=== PATIENT | female | born 1945 | race Caucasian/White ===

== ENCOUNTER → 2021-01-21 | Outpatient (CLI) | payer MEDICARE ==
--- NOTE | 2021-01-21 12:13 | XR ---
EXAMINATION TYPE: XR foot complete LT DATE OF EXAM: 01/21/2021 Comparison: None Clinical History: 75-year-old female LEFT FOOT pain and bruising. Findings: There is marked dorsal soft tissue swelling. Marked osteopenia limiting evaluation. No discrete lytic destruction identified For the osteopenia. Mild degenerative change first MTP joint and first metatarsal sesamoid joint. Mod erate-sized plantar heel spur. Enthesopathy at the Achilles insertion. Impression: Pronounced osteopenia limiting assessment. Additionally, there is pronounced dorsal soft tissue swell ing. Query cellulitis. No displaced fracture seen.
== END ==
LOC: RADXRMAIN 11:00
PROVIDERS: ATTEND Nurse Practitioner Family
DX: M79.89 Other specified soft tissue disorders (principal); M85.80 Other specified disorders of bone density and structure, unspecified site

== ENCOUNTER → 2022-03-27 | Outpatient (CLI) | payer MEDICARE ==
--- NOTE | 2022-03-28 11:31 | CA ---
Transthoracic Echo Report Name: Kelly Balderrama Age: 77 Gender: F : 1945 Exam Date: 03/27/2022 11:20 Exam Location: [facility] Ht (in): 70 Wt (lb): 310 Ordering Physician: Isela Voss DO Attending/Referring Phys: Isela Voss DO Web Content Producer Karena Agrawal RDCS Procedure CPT: Indications: R01.1 cardiac murmur Cardiac Hx: Technical Quality: Technically difficult study Contrast 1: Lumason Total Dose (mL): 3 Contrast 2: Total Dose (mL): MEASUREMENTS (Male / Female) Normal Values 2D ECHO LV Diastolic Diameter PLAX 4.3 cm 4.2 - 5.9 / 3.9 - 5.3 cm LV Systolic Diameter PLAX 2.9 cm IVS Diastolic Thickness 1.3 cm 0.6 - 1.0 / 0.6 - 0.9 cm LVPW Diastolic Thickness 1.3 cm 0.6 - 1.0 / 0.6 - 0.9 cm LV Relative Wall Thickness 0.6 RV Internal Dim ED PLAX 3.8 cm M-MODE Aortic Root Diameter MM 2.8 cm LA Systolic Diameter MM 4.4 cm LA Ao Ratio MM 1.6 AV Cusp Separation MM 1.8 cm DOPPLER AV Peak Velocity 172.8 cm/s AV Peak Gradient 11.9 mmHg AV Mean Velocity 155.7 cm/s AV Mean Gradient 11.5 mmHg AV Velocity Time Integral 52.5 cm LVOT Peak Velocity 77.0 cm/s LVOT Peak Gradient 2.4 mmHg MV Area PHT 3.2 cm??? Mitral E Point Velocity 104.5 cm/s Mitral A Point Velocity 131.0 cm/s Mitral E to A Ratio 0.8 MV Deceleration Time 238.5 ms MV E' Velocity 7.6 cm/s Mitral E to MV E' Ratio 13.7 TR Peak Velocity 283.9 cm/s TR Peak Gradient 32.2 mmHg Right Ventricular Systolic Press 36.1 mmHg FINDINGS Left Ventricle Normal left ventricular systolic function with no obvious regional wall motion abnormalities. Left ventricular cavity size normal. Mildly increased left ventricular wall thickness. Left ventricular ejection fraction is estimated at 55-60 %. Right Ventricle Moderate right ventricular dilatation. Mild pulmonary hypertension. Right Atrium Right atrium not well visualized. Left Atrium Mild left atrial dilatation. Mitral Valve Mild mitral regurgitation. Aortic Valve No aortic regurgitation. Trileaflet aortic valve. Aortic valve sclerosis. Tricuspid Valve Structurally normal tricuspid valve. Mild tricuspid regurgitation. Pulmonic Valve Structurally normal pulmonic valve. Trace pulmonic regurgitation. Pericardium No pericardial effusion. Aorta Normal size aortic root and proximal ascending aorta. CONCLUSIONS Normal left ventricular dimension and systolic function Please see above for further details Previewed by: Dr. Justin Miller MD (Electronically Signed) Final Date: 28 Mar 2022 11:30
== END | disposition home or self-care (01) ==
LOC: RADECHMAIN 11:17
PROVIDERS: ATTEND Family Medicine
DX: I08.8 Other rheumatic multiple valve diseases (principal)
CPT/HCPCS: C8929; Q9950; 93306

== ENCOUNTER 2022-08-17 09:27 | Emergency (ER) | payer MEDICARE ==
[2022-08-17 09:33] VITALS: TEMP 97.6
[2022-08-17] MEDS ORDERED: KETOROLAC 15 MG/ML 1 ML VIAL IM STA (10:13)
--- NOTE | 2022-08-17 10:13 | ED ---
Back Pain HPI - General Chief Complaint: Back Pain/Injury Stated Complaint: Sciatica Time Seen by Provider: 08/17/22 09:53 Source: patient, RN notes reviewed Limitations: no limitations - History of Present Illness Initial Comments: Patient is a pleasant 77-year-old female presenting to the emergency room with complaints of right lower back pain with radiation into her right leg. She reports a history of right-sided lower back pain with sciatica in the past. She reports that symptoms are unchanged from her previous flare. She denies any trauma or known injury. She states that she took Tylenol at home without any significant relief in her symptoms. She reports that she has previously responded well to steroids and is not currently following with a orthopedist or neurologist. She denies any focal neurological deficits, urinary or bowel incontinence, saddle paresthesia or other red flag symptoms for cauda equina. In addition to her back pain she has a past medical history significant for diabetes, hypertension, hyperlipidemia and chronic kidney disease stage III. - Related Data Home Medications Medication Instructions Recorded Confirmed Atorvastatin [Lipitor] 10 mg PO HS 09/14/16 12/21/21 Pioglitazone HCl [Actos] 15 mg PO HS 09/14/16 12/21/21 atenoloL [Tenormin] 25 mg PO HS 09/14/16 12/21/21 glipiZIDE [Glucotrol] 5 mg PO HS 09/14/16 12/21/21 Ascorbic Acid [Vitamin C] 500 mg PO HS 12/21/21 12/21/21 Cholecalciferol [Vitamin D3 (25 25 mcg PO HS 12/21/21 12/21/21 Mcg = 1000 Iu)] Insulin Aspart Prot/Insuln Asp 12 unit SQ HS 12/21/21 12/21/21 [NovoLOG MIX 70-30 Flexpen] Insulin Aspart Prot/Insuln Asp 17 unit SQ DAILY 12/21/21 12/21/21 [NovoLOG MIX 70-30 Flexpen] lisinopriL 40 mg PO HS 12/21/21 12/21/21 Previous Rx's Medication Instructions Recorded predniSONE [Deltasone] 20 mg PO BID #10 tab 08/17/22 Allergies Allergy/AdvReac Type Severity Reaction Status Date / Time No Known Allergies Allergy Verified 08/17/22 09:33 Review of Systems ROS Statement: Those systems with pertinent positive or pertinent negative responses have been documented in the HPI. ROS Other: All systems not noted in ROS Statement are negative. Past Medical History Past Medical History: Diabetes Mellitus, Hyperlipidemia, Hypertension, Renal Disease History of Any Multi-Drug Resistant Organisms: None Reported Past Surgical History: Appendectomy, Cholecystectomy Additional Past Surgical History / Comment(s): fluid drained from heart 20 years ago Past Psychological History: No Psychological Hx Reported Smoking Status: Never smoker Past Alcohol Use History: None Reported Past Drug Use History: None Reported General Exam Limitations: no limitations General appearance: alert, in no apparent distress, obese Head exam: Present: atraumatic, normocephalic, normal inspection Eye exam: Present: normal appearance, PERRL, EOMI. Absent: scleral icterus, conjunctival injection, periorbital swelling ENT exam: Present: normal exam, mucous membranes moist Neck exam: Present: normal inspection, full ROM Respiratory exam: Absent: respiratory distress, accessory muscle use Cardiovascular Exam: Present: regular rate GI/Abdominal exam: Absent: distended Extremities exam: Present: full ROM. Absent: pedal edema, joint swelling Back exam: Present: normal inspection, full ROM (Slightly limited by body habitus). Absent: tenderness, CVA tenderness (R), muscle spasm, paraspinal tenderness, vertebral tenderness Neurological exam: Present: alert, oriented X3, CN II-XII intact Psychiatric exam: Present: normal affect, normal mood Skin exam: Present: warm, dry, intact, normal color. Absent: rash Course Vital Signs 08/17/22 08/17/22 09:29 10:59 Temperature 97.6 F Pulse Rate 81 74 Respiratory 16 17 Rate Blood Pressure 163/78 179/69 O2 Sat by Pulse 96 95 Oximetry Medical Decision Making - Medical Decision Making 77-year-old female presenting to the emergency room with complaints of right-sided lower back pain with right-sided sciatica similar to previous episodes without any new trauma, new characteristics, neuropathy or incontinence. No indication for diagnostic imaging or laboratory studies. Previously responded well to oral steroids. Will give dose of Toradol and monitor response. Slight improvement with Toradol. Will give morphine and monitor for efficacy. 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 Symptoms improved with morphine without side effects. Will discharge home on oral steroid regiment as previously prescribed, no need for taper. Advise follow-up with her primary care provider. Return parameters to the emergency room reviewed. Case discussed with Dr. Sunshine. Disposition Clinical Impression: Lumbar radiculopathy Disposition: HOME SELF-CARE Condition: Stable Instructions (If sedation given, give patient instructions): Lumbar Radiculopathy (ED), Lower Back Exercises (ED) Additional Instructions: Please complete course of steroids as prescribed. Avoid heavy lifting and bedrest. Please follow-up with your primary care provider. Range of motion as tolerated encouraged. Please return to the Emergency Department if symptoms worsen or any other concerns. Prescriptions: predniSONE [Deltasone] 20 mg PO BID #10 tab Is patient prescribed a controlled substance at d/c from ED?: No Referrals: Isela Voss DO [Primary Care Provider] - 1-2 days Time of Disposition: 11:33
[2022-08-17] MEDS ORDERED: MORPHINE SULFATE 4 MG/ML SYRINGE IM STA (10:51)
[2022-08-17 11:02] VITALS: BP 179/69; PULSE 74; RESP 17
== END 2022-08-17 11:58 | disposition home or self-care (01) ==
LOC: EC 09:27
DX: M54.16 Radiculopathy, lumbar region (principal); E11.22 Type 2 diabetes mellitus with diabetic chronic kidney disease; I12.9 Hypertensive chronic kidney disease with stage 1 through stage 4 chronic kidney disease, or unspecified chronic kidney disease; N18.30 Chronic kidney disease, stage 3 unspecified; E78.5 Hyperlipidemia, unspecified; Z79.4 Long term (current) use of insulin; Z79.899 Other long term (current) drug therapy; Z79.84 Long term (current) use of oral hypoglycemic drugs
CPT/HCPCS: 96372; 99283; J2270; J1885

== ENCOUNTER 2023-03-23 20:38 | Inpatient (IN) | payer MEDICARE ==
[2023-03-23] MEDS ORDERED: ACETAMINOPHEN TAB 500 MG TAB PO STA (21:04)
--- NOTE | 2023-03-23 21:06 | ED ---
General Adult HPI - General Chief complaint: Fever Stated complaint: fever Time Seen by Provider: 03/23/23 20:40 Source: patient, EMS, RN notes reviewed Mode of arrival: EMS Limitations: no limitations - History of Present Illness Initial comments: Patient is a pleasant 78-year-old female presenting to the emergency department after feeling well. Onset of symptoms was approximately 3-4 days ago. Patient complains of chills and myalgias and fatigue. No cough. No dyspnea. No abdominal pain. No urinary symptoms. No new back pain. No confusion or isolated area of weakness. Patient is unclear whether or not she is having fevers at home. - Related Data Home Medications Medication Instructions Recorded Confirmed Atorvastatin [Lipitor] 10 mg PO HS 09/14/16 12/21/21 Pioglitazone HCl [Actos] 15 mg PO HS 09/14/16 12/21/21 atenoloL [Tenormin] 25 mg PO HS 09/14/16 12/21/21 glipiZIDE [Glucotrol] 5 mg PO HS 09/14/16 12/21/21 Ascorbic Acid [Vitamin C] 500 mg PO HS 12/21/21 12/21/21 Cholecalciferol [Vitamin D3 (25 25 mcg PO HS 12/21/21 12/21/21 Mcg = 1000 Iu)] Insulin Aspart Prot/Insuln Asp 12 unit SQ HS 12/21/21 12/21/21 [NovoLOG MIX 70-30 Flexpen] Insulin Aspart Prot/Insuln Asp 17 unit SQ DAILY 12/21/21 12/21/21 [NovoLOG MIX 70-30 Flexpen] lisinopriL 40 mg PO HS 12/21/21 12/21/21 Previous Rx's Medication Instructions Recorded predniSONE [Deltasone] 20 mg PO BID #10 tab 08/17/22 Allergies Allergy/AdvReac Type Severity Reaction Status Date / Time No Known Allergies Allergy Verified 03/23/23 20:45 Review of Systems ROS Statement: Those systems with pertinent positive or pertinent negative responses have been documented in the HPI. ROS Other: All systems not noted in ROS Statement are negative. Constitutional: Reports: as per HPI, chills Eyes: Denies: eye pain ENT: Denies: ear pain Respiratory: Denies: cough Cardiovascular: Denies: chest pain Endocrine: Reports: fatigue Gastrointestinal: Denies: abdominal pain Genitourinary: Denies: dysuria Musculoskeletal: Denies: back pain Skin: Denies: rash Neurological: Denies: weakness Past Medical History Past Medical History: Diabetes Mellitus, Hyperlipidemia, Hypertension, Renal Disease History of Any Multi-Drug Resistant Organisms: None Reported Past Surgical History: Appendectomy, Cholecystectomy Additional Past Surgical History / Comment(s): fluid drained from heart 20 years ago Past Psychological History: No Psychological Hx Reported Smoking Status: Never smoker Past Alcohol Use History: None Reported Past Drug Use History: None Reported General Exam Limitations: no limitations General appearance: alert, in no apparent distress Head exam: Present: normocephalic Eye exam: Present: normal appearance Neck exam: Present: normal inspection Respiratory exam: Present: normal lung sounds bilaterally Cardiovascular Exam: Present: regular rate, normal rhythm GI/Abdominal exam: Present: soft. Absent: tenderness Extremities exam: Present: pedal edema. Absent: calf tenderness Neurological exam: Present: alert Psychiatric exam: Present: normal affect, normal mood Skin exam: Present: normal color Course Vital Signs 03/23/23 03/23/23 03/23/23 20:40 21:40 21:42 Temperature 102.6 F H 100.4 F H Pulse Rate 100 90 Respiratory 18 24 24 Rate Blood Pressure 140/68 131/80 O2 Sat by Pulse 92 L 96 Oximetry - Reevaluation(s) Reevaluation #1: 03/23/23 23:08 Patient does qualify for sepsis criteria diagnosed at 2300. Blood culture and lactic acid and IV antibiotics will be ordered EKG Findings - EKG Results: EKG: interpreted by ERMD, sinus rhythm, normal axis, normal QRS, normal ST/T Medical Decision Making - Medical Decision Making Was pt. sent in by a medical professional or institution (, PA, SALES ENABLEMENT CONSULTANT, urgent care, hospital, or care home...) When possible be specific @ -No Did you speak to anyone other than the patient for history (EMS, parent, family, police, friend...)? What history was obtained from this source @ -Family later arrived and help provide history bleeding to patient's recent illness Did you review nursing and triage notes (agree or disagree)? Why? @ -I reviewed and agree with nursing and triage notes Were old charts reviewed (outside hosp., previous admission, EMS record, old EKG, old radiological studies, urgent care reports/EKG's, care home records)? Report findings @ -No old charts were reviewed Differential Diagnosis (chest pain, altered mental status, abdominal pain women, abdominal pain men, vaginal bleeding, weakness, fever, dyspnea, syncope, headache, dizziness, GI bleed, back pain, seizure, CVA, palpatations, mental health)? @ -Differential Weakness: Hypoglycemia, shock, sepsis, hyponatremia, anemia, infection, IA, ETOH, adverse medicine reaction, overdose, stroke, this is not meant to be an all-inclusive list. EKG interpreted by me (3pts min.). @ -As above X-rays interpreted by me (1pt min.). @ -Chest x-ray concerning for small right upper middle lobe infiltrates CT interpreted by me (1pt min.). @ -None done U/S interpreted by me (1pt. min.). @ -None done What testing was considered but not performed or refused? (CT, X-rays, U/S, labs)? Why? @ -None What meds were considered but not given or refused? Why? @ -None Did you discuss the management of the patient with other professionals (professionals i.e. , PA, SALES ENABLEMENT CONSULTANT, lab, RT, psych nurse, social service agency director, automobile service station mechanic, teacher, court collections officer, human services case manager)? Give summary @ -Case was discussed with Dr. corona, who will admit covering hospital call Was smoking cessation discussed for >3mins.? @ -No Was critical care preformed (if so, how long)? @ -33 minutes critical care time Were there social determinants of health that impacted care today? How? (Homelessness, low income, unemployed, alcoholism, drug addiction, transportation, low edu. Level, literacy, decrease access to med. care, detention, rehab)? @ -No Was there de-escalation of care discussed even if they declined (Discuss DNR or withdrawal of care, Hospice)? DNR status @ -No What co-morbidities impacted this encounter? (DM, HTN, Smoking, COPD, CAD, Cancer, CVA, ARF, Chemo, Hep., AIDS, mental health diagnosis, sleep apnea, morbid obesity)? @ -None Was patient admitted / discharged? Hospital course, mention meds given and route, prescriptions, significant lab abnormalities, going to OR and other pertinent info. @ -Patient reevaluated. Patient and family updated on results and plan. Patient will be admitted with IV antibiotics. Patient does meet sepsis criteria. Undiagnosed new problem with uncertain prognosis? @ -No Drug Therapy requiring intensive monitoring for toxicity (Heparin, Nitro, Insulin, Cardizem)? @ -No Were any procedures done? @ -No Diagnosis/symptom? @ -Pneumonia, UTI, sepsis Acute, or Chronic, or Acute on Chronic? @ -Acute, acute, acute Uncomplicated (without systemic symptoms) or Complicated (systemic symptoms)? @ -Infection, acute with sepsis Side effects of treatment? @ -No Exacerbation, Progression, or Severe Exacerbation? @ -No Poses a threat to life or bodily function? How? (Chest pain, USA, IA, pneumonia, PE, COPD, DKA, ARF, appy, cholecystitis, CVA, Diverticulitis, Homicidal, Suicidal, threat to staff... and all critical care pts) @ -No - Lab Data Result diagrams: 03/23/23 21:04 03/23/23 21:04 Lab Results 03/23/23 03/23/23 03/23/23 Range/Units 21:04 21:04 21:04 WBC 7.7 (3.8-10.6) k/uL RBC 3.83 (3.80-5.40) m/uL Hgb 11.3 L (11.4-16.0) gm/dL Hct 35.1 (34.0-46.0) % MCV 91.6 (80.0-100.0) fL MCH 29.5 (25.0-35.0) pg MCHC 32.2 (31.0-37.0) g/dL RDW 14.9 (11.5-15.5) % Plt Count 105 L (150-450) k/uL MPV 8.6 Neutrophils % 91 % Lymphocytes % 3 % Monocytes % 3 % Eosinophils % 2 % Basophils % 0 % Neutrophils # 7.0 (1.3-7.7) k/uL Lymphocytes # 0.2 L (1.0-4.8) k/uL Monocytes # 0.3 (0-1.0) k/uL Eosinophils # 0.1 (0-0.7) k/uL Basophils # 0.0 (0-0.2) k/uL Sodium 137 (137-145) mmol/L Potassium 5.1 (3.5-5.1) mmol/L Chloride 105 (98-107) mmol/L Carbon Dioxide 23 (22-30) mmol/L Anion Gap 9 mmol/L BUN 43 H (7-17) mg/dL Creatinine 1.72 H (0.52-1.04) mg/dL Est GFR (CKD-EPI)AfAm 32 (>60 ml/min/1.73 sqM) Est GFR (CKD-EPI)NonAf 28 (>60 ml/min/1.73 sqM) Glucose 178 H (74-99) mg/dL Plasma Lactic Acid Leo (0.7-2.0) mmol/L Calcium 8.5 (8.4-10.2) mg/dL Total Bilirubin 0.9 (0.2-1.3) mg/dL AST 41 H (14-36) U/L ALT 24 (4-34) U/L Alkaline Phosphatase 88 (38-126) U/L Total Protein 6.4 (6.3-8.2) g/dL Albumin 3.5 (3.5-5.0) g/dL Urine Color Yellow Urine Appearance Cloudy H (Clear) Urine pH 5.5 (5.0-8.0) Ur Specific [place] 1.016 (1.001-1.035) Urine Protein 2+ H (Negative) Urine Glucose (UA) Negative (Negative) Urine Ketones Negative (Negative) Urine Blood Trace H (Negative) Urine Nitrite Negative (Negative) Urine Bilirubin Negative (Negative) Urine Urobilinogen <2.0 (<2.0) mg/dL Ur Leukocyte Esterase Large H (Negative) Urine RBC 2 (0-5) /hpf Urine WBC 127 H (0-5) /hpf Urine WBC Clumps Many H (None) /hpf Ur Squamous Epith Cells <1 (0-4) /hpf Amorphous Sediment Rare H (None) /hpf Urine Bacteria Many H (None) /hpf Urine Mucus Rare H (None) /hpf 03/23/23 Range/Units 21:04 WBC (3.8-10.6) k/uL RBC (3.80-5.40) m/uL Hgb (11.4-16.0) gm/dL Hct (34.0-46.0) % MCV (80.0-100.0) fL MCH (25.0-35.0) pg MCHC (31.0-37.0) g/dL RDW (11.5-15.5) % Plt Count (150-450) k/uL MPV Neutrophils % % Lymphocytes % % Monocytes % % Eosinophils % % Basophils % % Neutrophils # (1.3-7.7) k/uL Lymphocytes # (1.0-4.8) k/uL Monocytes # (0-1.0) k/uL Eosinophils # (0-0.7) k/uL Basophils # (0-0.2) k/uL Sodium (137-145) mmol/L Potassium (3.5-5.1) mmol/L Chloride (98-107) mmol/L Carbon Dioxide (22-30) mmol/L Anion Gap mmol/L BUN (7-17) mg/dL Creatinine (0.52-1.04) mg/dL Est GFR (CKD-EPI)AfAm (>60 ml/min/1.73 sqM) Est GFR (CKD-EPI)NonAf (>60 ml/min/1.73 sqM) Glucose (74-99) mg/dL Plasma Lactic Acid Leo 1.0 (0.7-2.0) mmol/L Calcium (8.4-10.2) mg/dL Total Bilirubin (0.2-1.3) mg/dL AST (14-36) U/L ALT (4-34) U/L Alkaline Phosphatase (38-126) U/L Total Protein (6.3-8.2) g/dL Albumin (3.5-5.0) g/dL Urine Color Urine Appearance (Clear) Urine pH (5.0-8.0) Ur Specific [place] (1.001-1.035) Urine Protein (Negative) Urine Glucose (UA) (Negative) Urine Ketones (Negative) Urine Blood (Negative) Urine Nitrite (Negative) Urine Bilirubin (Negative) Urine Urobilinogen (<2.0) mg/dL Ur Leukocyte Esterase (Negative) Urine RBC (0-5) /hpf Urine WBC (0-5) /hpf Urine WBC Clumps (None) /hpf Ur Squamous Epith Cells (0-4) /hpf Amorphous Sediment (None) /hpf Urine Bacteria (None) /hpf Urine Mucus (None) /hpf Critical Care Time Critical Care Time: Yes Total Critical Care Time: 33 Disposition Clinical Impression: Sepsis, Urinary tract infection, Pneumonia Disposition: ADMITTED IP TO THIS HOSP Condition: Serious Is patient prescribed a controlled substance at d/c from ED?: No Referrals: Luis Enrique Leong DO [REFERRING] - 1-2 days Time of Disposition: 23:12
[2023-03-23] MEDS: SODIUM CHLORIDE 0.9% 1,000 ML IV SCH (21:37)
[2023-03-23 21:52] LABS: Basophils % (A) 0 %; Eosinophils # (A) 0.1 k/uL (0-0.7); Eosinophils % (A) 2 %; HCT 35.1 % (34.0-46.0); HGB 11.3 gm/dL (11.4-16.0); Lymphocytes # (A) 0.2 k/uL (1.0-4.8); Lymphocytes % (A) 3 %; MCH 29.5 pg (25.0-35.0); MCHC 32.2 g/dL (31.0-37.0); MCV 91.6 fL (80.0-100.0); Mean Platelet Volume 8.6; Monocytes # (A) 0.3 k/uL (0-1.0); Monocytes % (A) 3 %; Neutrophils % (A) 91 %; Platelet Count 105 k/uL (150-450); RBC 3.83 m/uL (3.80-5.40); RDW 14.9 % (11.5-15.5); WBC 7.7 k/uL (3.8-10.6)
[2023-03-23 21:54] LABS: Albumin 3.5 g/dL (3.5-5.0); Calcium 8.5 mg/dL (8.4-10.2); Potassium 5.1 mmol/L (3.5-5.1); Total Bilirubin 0.9 mg/dL (0.2-1.3); Total Protein 6.4 g/dL (6.3-8.2)
[2023-03-23 22:07] LABS: Amorphous Sediment,Urine Rare /hpf; Appearance,Urine Cloudy (Clear); Bacteria,Urine Many /hpf; Bilirubin,Urine Negative (Negative); Blood,Urine Trace (Negative); Color,Urine Yellow; Glucose,Urine (UA) Negative (Negative); Ketones,Urine Negative (Negative); Leukocyte Esterase,Urine Large (Negative); Mucus,Urine Rare /hpf; Nitrite,Urine Negative (Negative); PH, Urine 5.5 (5.0-8.0); Protein,Urine 2+ (Negative); RBC,Urine 2 /hpf (0-5); Specific Gravity,Urine 1.016 (1.001-1.035); Squamous Epithelial Cell,Urine <1 /hpf (0-4); Urobilinogen,Urine <2.0 mg/dL (<2.0); WBC,Urine 127 /hpf (0-5)
--- NOTE | 2023-03-23 22:56 | XR ---
EXAM: XR Chest, 2 Views CLINICAL HISTORY: FEVER TECHNIQUE: Frontal and lateral views of the chest. COMPARISON: No relevant prior studies available. FINDINGS: Lungs: There is a patchy opacity in the right upper and right middle lobe. There is mild to moderate peribronchial thickening of the central bronchi. Pleural space: Unremarkable. No pneumothorax. Heart: Unremarkable. No cardiomegaly. Mediastinum: Unremarkable. Bones/joints: Unremarkable. IMPRESSION: Findings concerning for right upper and right middle lobe infiltrates.
[2023-03-23] MEDS ORDERED: SODIUM CHLORIDE 0.9% 1,000 ML IV STA (23:08)
[2023-03-23] MEDS ORDERED: PNEUMONIA PROTOCOL UTILIZED 1 EACH MISC PO PRN (23:12)
[2023-03-23] MEDS ORDERED: MORPHINE SULFATE 4 MG/ML SYRINGE IVP STA (23:15)
[2023-03-24] MEDS: AZITHROMYCIN 500 MG in SODIUM CHLORIDE 0.9% 250 ML IVPB SCH (00:01)
--- NOTE | 2023-03-24 07:46 | XR ---
EXAMINATION TYPE: XR chest 1V portable DATE OF EXAM: 03/24/2023 Comparison: 03/23/2023 Clinical History: 78-year-old female pneumonia Findings: Asymmetric elevation right hemidiaphragm. Heart upper limits of normal in size. Interstitial prominen ce without emory consolidation or pleural effusion. Impression: 1. Interstitial prominence could reflect bronchitis or asthma. No focal infiltrate. 2. Asymmetric elevation right hemidiaphragm may be transient. If concern for hemidiaphragmatic paraly sis, a fluoroscopic sniff test could be performed.
[2023-03-24] MEDS ORDERED: DEXTROSE 50% SYRINGE 50 ML IVP PRN ×2 (10:17)
[2023-03-24] MEDS ORDERED: ONDANSETRON 4 MG/2 ML VIAL IVP PRN (10:20)
[2023-03-24] MEDS ORDERED: ACETAMINOPHEN TAB 325 MG TAB PO PRN (10:20)
[2023-03-24 11:12] LABS: Glucose,Whole Blood 177 mg/dL (70-110)
[2023-03-24] MEDS: SODIUM CHLORIDE 0.9% 1,000 ML IV SCH ×3 (11:50→21:39)
[2023-03-24] MEDS: INSULN ASP PRT/INSULIN ASPART 100 UNIT/ML 10 ML VIAL SQ SCH (11:52)
[2023-03-24] MEDS: INSULIN ASPART (NovoLOG) 100 UNIT/ML VIAL SQ SCH ×3 (13:13→20:28)
[2023-03-24 13:14] LABS: Glucose,Whole Blood 167 mg/dL (70-110)
--- NOTE | 2023-03-24 15:06 | P.HPIM ---
History of Present Illness H&P Date: 03/24/23 This is an 78 year old female with medical history of diabetes mellitus, hyperlipidemia, hypertension, renal disease. Patient also reports having a recent eye surgery due a "black film." patient presents to the hospital with complaints of generalized malaise and chills which started on Thursday. Patient has been mostly bed rest since then due to generalized weakness and reports decreased appetite. Patient has been feeling nausea and had an episode of vomiting yesterday. Patient denies fever at home but does have a temp of 102.6 upon presentation to the ER. Denies chest pain, denies abdominal pain and diarrhea. Denies dizziness or lightheadedness. Patient denies any dysuria. Initial work up reveals a normal white count, creatinine of 1.72. Influenza A/B, Legionella, RSV and covid are negative. Patients initial chest xray showing right upper and middle lobe infiltrate. A follow up xray shows elevation of the right hemidiaphragm this could be transient. We will follow up the chest xray in the AM. Patient is requiring oxygen at 2L nasal cannula and was unable to be weaned with oxygen dropping into the mid 80s. Patient will be admitted for pneumonia and sepsis and started on antibiotic therapy with IV ceftriaxone and IV azithromycin. A procalcitonin level is ordered. REVIEW OF SYSTEMS: CONSTITUTIONAL: Reports fever, malaise, fatigue HEENT: No recent visual problems or hearing problems. Denied any sore throat. CARDIOVASCULAR: No chest pain, orthopnea, PND, no palpitations, no syncope. PULMONARY: No shortness of breath, no cough, no hemoptysis. GASTROINTESTINAL: No diarrhea, no abdominal pain reports nausea and vomiting. NEUROLOGICAL: No headaches, no weakness, no numbness. HEMATOLOGICAL: Denies any bleeding or petechiae. GENITOURINARY: Denies any burning micturition, frequency, or urgency. MUSCULOSKELETAL/RHEUMATOLOGICAL: Denies any joint pain, swelling, or any muscle pain. ENDOCRINE: Denies any polyuria or polydipsia. The rest of the 14-point review of systems is negative. PHYSICAL EXAMINATION: GENERAL: The patient is alert and oriented x3, not in any acute distress. Well developed, well nourished. Fatigued. on 2L nasal cannula. HEENT: Pupils are round and equally reacting to light. EOMI. No scleral icterus. No conjunctival pallor. Normocephalic, atraumatic. No pharyngeal erythema. No thyromegaly. CARDIOVASCULAR: S1 and S2 present. No murmurs, rubs, or gallops. PULMONARY: Chest is clear to auscultation, no wheezing or crackles. ABDOMEN: Soft, nontender, nondistended, normoactive bowel sounds. No palpable organomegaly. MUSCULOSKELETAL: No joint swelling or deformity. EXTREMITIES: No cyanosis, clubbing, or pedal edema. NEUROLOGICAL: Gross neurological examination did not reveal any focal deficits. SKIN: No rashes. Assessment and plan Assessment Right sided pneumonia with sepsis community acquired present on admission Acute hypoxic respiratory failure secondary to above requiring 2L of oxygen via nasal cannula. Abnormal urine possibly due to dehydration patient is asymptomatic at this time Acute kidney injury Diabetes Mellitus type 2 History of hypertension Hyperlipidemia GI prophylaxis DVT prophylaxis Plan Continue IV fluids IV ceftriaxone Hold lisinopril and torsemide Check procalcitonin level Continue supplemental oxygen Incentive spirometer 10 x an hour while awake Follow up AM labs PT/OT consulatation The impression and plan of care has been dictated by Digna Ulloa Nurse Practitioner as directed. Dr. Xavier MD I have performed a history and physical examination and medical decision making of this patient, discussed the same with the dictator, and agree with the dictators assessment and plan as written, documented as a scribe. Based on total visit time, I have performed more than 50% of this visit. Past Medical History Past Medical History: Diabetes Mellitus, Hyperlipidemia, Hypertension, Renal Disease History of Any Multi-Drug Resistant Organisms: None Reported Past Surgical History: Appendectomy, Cholecystectomy Additional Past Surgical History / Comment(s): fluid drained from heart 20 years ago Past Psychological History: No Psychological Hx Reported Smoking Status: Never smoker Past Alcohol Use History: None Reported Past Drug Use History: None Reported Medications and Allergies Home Medications Medication Instructions Recorded Confirmed Type Atorvastatin [Lipitor] 10 mg PO HS 09/14/16 03/24/23 History Ascorbic Acid [Vitamin C] 500 mg PO HS 12/21/21 03/24/23 History Cholecalciferol [Vitamin D3 (25 25 mcg PO HS 12/21/21 03/24/23 History Mcg = 1000 Iu)] Insulin Aspart Prot/Insuln Asp 14 unit SQ HS 12/21/21 03/24/23 History [NovoLOG MIX 70-30 Flexpen] Insulin Aspart Prot/Insuln Asp 17 unit SQ DAILY 12/21/21 03/24/23 History [NovoLOG MIX 70-30 Flexpen] lisinopriL 40 mg PO HS 12/21/21 03/24/23 History Pioglitazone [Actos] 30 mg PO HS 03/24/23 03/24/23 History Torsemide [Demadex] 5 - 10 mg PO DAILY 03/24/23 03/24/23 History carvediloL [Coreg] 3.125 mg PO BID 03/24/23 03/24/23 History Allergies Allergy/AdvReac Type Severity Reaction Status Date / Time No Known Allergies Allergy Verified 03/24/23 08:36 Physical Exam Vitals: Vital Signs Temp Pulse Resp BP Pulse Ox 03/24/23 06:05 98.2 F 70 18 108/77 95 03/24/23 03:54 73 18 104/45 95 03/23/23 23:41 98.8 F 82 18 99/48 94 L 03/23/23 23:10 80 15 96/32 03/23/23 23:00 81 22 96/39 94 L 03/23/23 22:50 80 30 H 96/39 95 03/23/23 22:42 81 30 H 96/39 94 L 03/23/23 21:42 24 03/23/23 21:40 100.4 F H 90 24 131/80 96 03/23/23 20:40 102.6 F H 100 18 140/68 92 L Intake and Output 03/23/23 03/24/23 03/24/23 22:59 06:59 14:59 Other: Weight 136.078 kg Results CBC & Chem 7: 03/23/23 21:04 03/23/23 21:04 Labs: Abnormal Lab Results - Last 24 Hours (Table) 03/23/23 03/23/23 03/23/23 Range/Units 21:04 21:04 21:04 Hgb 11.3 L (11.4-16.0) gm/dL Plt Count 105 L (150-450) k/uL Lymphocytes # 0.2 L (1.0-4.8) k/uL BUN 43 H (7-17) mg/dL Creatinine 1.72 H (0.52-1.04) mg/dL Glucose 178 H (74-99) mg/dL AST 41 H (14-36) U/L Urine Appearance Cloudy H (Clear) Urine Protein 2+ H (Negative) Urine Blood Trace H (Negative) Ur Leukocyte Esterase Large H (Negative) Urine WBC 127 H (0-5) /hpf Urine WBC Clumps Many H (None) /hpf Amorphous Sediment Rare H (None) /hpf Urine Bacteria Many H (None) /hpf Urine Mucus Rare H (None) /hpf Microbiology - Last 24 Hours (Table) 03/23/23 21:04 Urine Culture - Preliminary Urine,Catheterized Assessment and Plan Time with Patient: Less than 30
[2023-03-24] MEDS: carvediloL 3.125 MG TAB PO SCH (16:49)
[2023-03-24] MEDS ORDERED: ALBUTEROL NEBULIZED 2.5 MG/3 ML INHALATION PRN (16:56)
[2023-03-24 17:01] LABS: Glucose,Whole Blood 133 mg/dL (70-110)
[2023-03-24 20:09] LABS: Glucose,Whole Blood 130 mg/dL (70-110)
[2023-03-24] MEDS: CHOLECALCIFEROL 25 MCG (1000 IU) TABLET PO SCH (20:27)
[2023-03-24] MEDS: ATORVASTATIN 10 MG TAB PO SCH (20:27)
[2023-03-24] MEDS: ASCORBIC ACID 500 MG TAB PO SCH (20:27)
[2023-03-24] MEDS: FAMOTIDINE 20 MG TAB PO SCH (20:28)
[2023-03-24] MEDS ORDERED: INSULN ASP PRT/INSULIN ASPART 100 UNIT/ML 10 ML VIAL SQ SCH (21:00)
[2023-03-24] MEDS ORDERED: atenoloL 25 MG TAB PO SCH (21:00)
[2023-03-24] MEDS ORDERED: glipiZIDE 5 MG TAB PO SCH (21:00)
[2023-03-24] MEDS ORDERED: PIOGLITAZONE 15 MG TAB PO SCH (21:00)
[2023-03-24] MEDS ORDERED: FAMOTIDINE 20 MG TAB PO SCH (21:00)
[2023-03-24] MEDS ORDERED: lisinopriL 20 MG TAB PO SCH (21:00)
--- NOTE | 2023-03-24 21:33 | P.CONS ---
History of Present Illness - Reason for Consult Consult date: 03/24/23 Bacteremia Requesting physician: Digna Ulloa - Chief Complaint Generalized malaise and chills x few days - History of Present Illness Patient is a 78-year-old female with a past medical his significant for diabetes mellitus hypertension hyperlipidemia renal insufficiency presented to the ER for evaluation of generalized malaise and chills symptom has been going on since Thursday the patient mention she is spent most of the day in bed has been complaint generalized weakness decreased appetite patient denies having any URI symptom has been nauseated episode of vomiting but denies having any abdominal pain or any diarrhea patient denies having any URI symptoms chest pain did have some shortness of breath and minimal cough but no sputum production pat ient on presentation to the hospital did have a fever of 102.6 degrees for night patient did have a tachycardia with a heart rate of 106 he was mildly hypoxic and need for supplemental oxygen currently on 2 L nasal cannula did have a normal white count of BUN/creatinine was mildly elevated elevated procalcitonin urine has been positive influenza RSV testing was negative patient blood cultures coming positive with Streptococcus agalactiae urine is showing gram- negative bacilli patient did have a chest x-ray right upper and right middle lobe infiltrate repeat x-ray this morning interstitial prominence could reflect bronchitis no acute infiltrate patient is currently being treated with Rocephin and azithromycin infectious disease was consulted for further management of antibiotic therapy patient did have a diffuse bilateral lower extremity swelling and some chronic dermatitis changes to the left leg but denies having any worsening swelling to the lower extremity any open wound or any drainage Review of Systems Positive point and negatives has been mentioned in the HPI, complete review of systems was performed and all other systems are negative Past Medical History Past Medical History: Diabetes Mellitus, Hyperlipidemia, Hypertension, Renal Disease History of Any Multi-Drug Resistant Organisms: None Reported Past Surgical History: Appendectomy, Cholecystectomy Additional Past Surgical History / Comment(s): fluid drained from heart 20 years ago Past Psychological History: No Psychological Hx Reported Smoking Status: Never smoker Past Alcohol Use History: None Reported Past Drug Use History: None Reported Medications and Allergies Home Medications Medication Instructions Recorded Confirmed Type Atorvastatin [Lipitor] 10 mg PO HS 09/14/16 03/24/23 History Ascorbic Acid [Vitamin C] 500 mg PO HS 12/21/21 03/24/23 History Cholecalciferol [Vitamin D3 (25 25 mcg PO HS 12/21/21 03/24/23 History Mcg = 1000 Iu)] Insulin Aspart Prot/Insuln Asp 14 unit SQ HS 12/21/21 03/24/23 History [NovoLOG MIX 70-30 Flexpen] Insulin Aspart Prot/Insuln Asp 17 unit SQ DAILY 12/21/21 03/24/23 History [NovoLOG MIX 70-30 Flexpen] lisinopriL 40 mg PO HS 12/21/21 03/24/23 History Pioglitazone [Actos] 30 mg PO HS 03/24/23 03/24/23 History Torsemide [Demadex] 5 - 10 mg PO DAILY 03/24/23 03/24/23 History carvediloL [Coreg] 3.125 mg PO BID 03/24/23 03/24/23 History Allergies Allergy/AdvReac Type Severity Reaction Status Date / Time No Known Allergies Allergy Verified 03/24/23 08:36 Physical Exam Vitals: Vital Signs Temp Pulse Resp BP Pulse Ox 03/24/23 13:08 74 19 123/47 96 03/24/23 12:26 97.6 F 65 17 116/51 98 03/24/23 11:05 97.6 F 62 18 111/51 96 03/24/23 11:00 86 L 03/24/23 10:00 64 18 126/54 96 03/24/23 09:00 61 18 126/62 98 03/24/23 08:00 63 18 122/55 98 03/24/23 07:00 63 18 116/52 98 03/24/23 06:05 98.2 F 70 18 108/77 95 03/24/23 04:00 71 22 104/45 03/24/23 03:54 73 18 104/45 95 03/24/23 03:00 70 16 91/44 03/24/23 02:00 73 25 H 84/38 03/24/23 01:00 73 25 H 93/44 03/24/23 00:00 37 H 99/48 03/23/23 23:41 98.8 F 82 18 99/48 94 L 03/23/23 23:11 106 H 25 H 83/32 94 L 03/23/23 23:10 80 15 96/32 03/23/23 23:00 81 22 96/39 94 L 03/23/23 22:50 80 30 H 96/39 95 03/23/23 22:42 81 30 H 96/39 94 L 03/23/23 21:42 24 03/23/23 21:40 100.4 F H 90 24 131/80 96 03/23/23 20:40 102.6 F H 100 18 140/68 92 L Intake and Output 03/23/23 03/24/23 03/24/23 22:59 06:59 14:59 Other: Weight 136.078 kg GENERAL DESCRIPTION: Elderly female lying in bed, no distress. No tachypnea or accessory muscle of respiration use. HEENT: Shows Pallor , no scleral icterus. Oral mucous membrane is dry. No pharyngeal erythema or thrush NECK: Trachea central, no thyromegaly. LUNGS: Unlabored breathing. Decreased breath sounds at the bases bilaterally HEART: S1, S2, regular rate and rhythm. ABDOMEN: Soft, no tenderness , guarding or rigidity EXTREMITIES: Diffuse swelling to bilateral lower extremity especially the left leg with some chronic changes no significant warmth blister or drainage was noticed. SKIN: No rash, no masses palpable. NEUROLOGICAL: The patient is awake, alert, oriented x3, mood and affect normal. Results CBC & Chem 7: 03/25/23 06:51 03/27/23 09:33 Labs: Abnormal Lab Results - Last 24 Hours (Table) 03/23/23 03/23/23 03/23/23 Range/Units 21:04 21:04 21:04 Hgb 11.3 L (11.4-16.0) gm/dL Plt Count 105 L (150-450) k/uL Lymphocytes # 0.2 L (1.0-4.8) k/uL BUN 43 H (7-17) mg/dL Creatinine 1.72 H (0.52-1.04) mg/dL Glucose 178 H (74-99) mg/dL POC Glucose (mg/dL) (70-110) mg/dL AST 41 H (14-36) U/L Urine Appearance Cloudy H (Clear) Urine Protein 2+ H (Negative) Urine Blood Trace H (Negative) Ur Leukocyte Esterase Large H (Negative) Urine WBC 127 H (0-5) /hpf Urine WBC Clumps Many H (None) /hpf Amorphous Sediment Rare H (None) /hpf Urine Bacteria Many H (None) /hpf Urine Mucus Rare H (None) /hpf 03/24/23 03/24/23 Range/Units 11:10 13:09 Hgb (11.4-16.0) gm/dL Plt Count (150-450) k/uL Lymphocytes # (1.0-4.8) k/uL BUN (7-17) mg/dL Creatinine (0.52-1.04) mg/dL Glucose (74-99) mg/dL POC Glucose (mg/dL) 177 H 167 H (70-110) mg/dL AST (14-36) U/L Urine Appearance (Clear) Urine Protein (Negative) Urine Blood (Negative) Ur Leukocyte Esterase (Negative) Urine WBC (0-5) /hpf Urine WBC Clumps (None) /hpf Amorphous Sediment (None) /hpf Urine Bacteria (None) /hpf Urine Mucus (None) /hpf Microbiology - Last 24 Hours (Table) 03/23/23 21:20 Blood Culture Gram Stain - Preliminary Blood Blood Culture - Preliminary Strep agalactiae - (group b) 03/23/23 21:23 Blood Culture Gram Stain - Preliminary Blood 03/23/23 21:04 Urine Culture - Preliminary Urine,Catheterized Assessment and Plan (1) Bacteremia due to Streptococcus Current Visit: Yes Status: Acute Code(s): R78.81 - BACTEREMIA; B95.5 - UNSP STREPTOCOCCUS THE CAUSE OF DISEASES CLASSD [facility] SNOMED Code(s): 373411364104 (2) Sepsis Current Visit: Yes Status: Acute Code(s): A41.9 - SEPSIS, UNSPECIFIED ORGANISM SNOMED Code(s): 75587156 Plan: 1patient presented to hospital with sepsis in this patient who did have a fever tachycardia source is likely multifactorial patient did have a positive and high clinical suspicious for UTI however her blood cultures are growing streptococci agalactiae which are usually of skin and soft tissue origin, patient did have a bilateral lower extremity swelling and some chronic derma titis changes to the left leg no significant warmth was noticed however could be possible source of bacteremia 2-blood cultures will be repeated document clearance of bacteremia 3-patient admitted Rocephin 2 g in addition to cover for both UTI as well as bacteremia possible related to the cellulitis We will follow on clinical condition and cultures to further adjust medication if needed Thank you for this consultation we will follow the patient along with you Time with Patient: Greater than 30
[2023-03-24] MEDS: PIOGLITAZONE 30 MG TAB PO SCH (21:39)
[2023-03-25] MEDS: AZITHROMYCIN 500 MG in SODIUM CHLORIDE 0.9% 250 ML IVPB SCH (00:01)
[2023-03-25] MEDS: SODIUM CHLORIDE 0.9% 1,000 ML IV SCH (06:07)
[2023-03-25] MEDS: carvediloL 3.125 MG TAB PO SCH ×2 (06:08→16:37)
[2023-03-25] MEDS: INSULIN ASPART (NovoLOG) 100 UNIT/ML VIAL SQ SCH ×4 (06:15→21:00)
[2023-03-25 06:16] LABS: Glucose,Whole Blood 89 mg/dL (70-110)
[2023-03-25 07:12] LABS: Basophils % (A) 0 %; Eosinophils # (A) 0.2 k/uL (0-0.7); Eosinophils % (A) 3 %; HGB 10.4 gm/dL (11.4-16.0); Hypochromasia Slight; Lymphocytes # (A) 0.7 k/uL (1.0-4.8); Lymphocytes % (A) 9 %; MCH 29.7 pg (25.0-35.0); MCHC 31.4 g/dL (31.0-37.0); MCV 94.7 fL (80.0-100.0); Mean Platelet Volume 8.9; Monocytes # (A) 0.4 k/uL (0-1.0); Monocytes % (A) 5 %; Neutrophils # (A) 5.8 k/uL (1.3-7.7); Neutrophils % (A) 80 %; Platelet Count 117 k/uL (150-450); RBC 3.48 m/uL (3.80-5.40); RDW 14.9 % (11.5-15.5); WBC 7.2 k/uL (3.8-10.6)
[2023-03-25 07:29] LABS: Calcium 8.3 mg/dL (8.4-10.2)
[2023-03-25 08:16] LABS: Magnesium 1.7 mg/dL (1.6-2.3); Potassium 4.9 mmol/L (3.5-5.1)
[2023-03-25] MEDS ORDERED: TORSEMIDE 20 MG TAB PO PRN (09:00)
[2023-03-25] MEDS: INSULN ASP PRT/INSULIN ASPART 100 UNIT/ML 10 ML VIAL SQ SCH ×2 (11:18→21:00)
[2023-03-25 12:06] LABS: Glucose,Whole Blood 130 mg/dL (70-110)
--- NOTE | 2023-03-25 13:42 | P.PN ---
Subjective Progress Note Date: 03/25/23 Principal diagnosis: UTI and bacteremia Patient is a 78-year-old female with a past medical his significant for diabetes mellitus hypertension hyperlipidemia renal insufficiency presented to the ER for evaluation of generalized malaise and chills , patient noticed to have a positivity was concern for possible UTI and subsequently came up positive for Streptococcus agalactiae, patient did have a chronic swelling to the lower extremity with some erythema to the left leg which was not that prominent on admission Cardiac evaluation that is 03/25/2023, the patient is afebrile, the patient is breathing comfortably is currently on room air patient denies having any chest pain or shortness of breath or cough no nausea no vomiting no abdominal pain no diarrhea Objective - Vital Signs Vital signs: Vital Signs Temp 98.0 F 03/25/23 12:00 Pulse 62 03/25/23 12:00 Resp 18 03/25/23 12:00 BP 128/73 03/25/23 12:00 Pulse Ox 97 03/25/23 12:00 FiO2 Intake & Output 03/24/23 03/25/23 03/25/23 18:59 06:59 18:59 Intake Total 180 Balance 180 Intake: Oral 180 Other: # Voids 2 - Exam GENERAL DESCRIPTION: An elderly female lying in bed in no distress RESPIRATORY SYSTEM: Unlabored breathing , decreased breath sounds at bases HEART: S1 S2 regular rate and rhythm , ABDOMEN: Soft , no tenderness EXTREMITIES: Diffuse swelling to bilateral lower extremity left leg with more swelling and erythema - Labs CBC & Chem 7: 03/25/23 06:51 03/25/23 06:51 Labs: Abnormal Lab Results - Last 24 Hours (Table) 03/24/23 03/24/23 03/24/23 Range/Units 10:29 10:29 13:09 RBC (3.80-5.40) m/uL Hgb (11.4-16.0) gm/dL Hct (34.0-46.0) % Plt Count (150-450) k/uL Lymphocytes # (1.0-4.8) k/uL Sodium (137-145) mmol/L Chloride (98-107) mmol/L Carbon Dioxide (22-30) mmol/L BUN (7-17) mg/dL Creatinine (0.52-1.04) mg/dL POC Glucose (mg/dL) 167 H (70-110) mg/dL Hemoglobin A1c 7.2 H (0.0-6.0) % Calcium (8.4-10.2) mg/dL Procalcitonin 16.60 H (0.02-0.09) ng/mL 03/24/23 03/24/23 03/25/23 Range/Units 16:59 20:08 06:51 RBC 3.48 L (3.80-5.40) m/uL Hgb 10.4 L (11.4-16.0) gm/dL Hct 33.0 L (34.0-46.0) % Plt Count 117 L (150-450) k/uL Lymphocytes # 0.7 L (1.0-4.8) k/uL Sodium (137-145) mmol/L Chloride (98-107) mmol/L Carbon Dioxide (22-30) mmol/L BUN (7-17) mg/dL Creatinine (0.52-1.04) mg/dL POC Glucose (mg/dL) 133 H 130 H (70-110) mg/dL Hemoglobin A1c (0.0-6.0) % Calcium (8.4-10.2) mg/dL Procalcitonin (0.02-0.09) ng/mL 03/25/23 03/25/23 Range/Units 06:51 12:05 RBC (3.80-5.40) m/uL Hgb (11.4-16.0) gm/dL Hct (34.0-46.0) % Plt Count (150-450) k/uL Lymphocytes # (1.0-4.8) k/uL Sodium 136 L (137-145) mmol/L Chloride 109 H (98-107) mmol/L Carbon Dioxide 18 L (22-30) mmol/L BUN 50 H (7-17) mg/dL Creatinine 1.87 H (0.52-1.04) mg/dL POC Glucose (mg/dL) 130 H (70-110) mg/dL Hemoglobin A1c (0.0-6.0) % Calcium 8.3 L (8.4-10.2) mg/dL Procalcitonin (0.02-0.09) ng/mL Microbiology - Last 24 Hours (Table) 03/23/23 21:23 Blood Culture Gram Stain - Preliminary Blood Blood Culture - Preliminary Strep agalactiae - (group b) 03/23/23 21:20 Blood Culture Gram Stain - Preliminary Blood Blood Culture - Preliminary Strep agalactiae - (group b) 03/23/23 21:04 Urine Culture - Preliminary Urine,Catheterized Gram Neg Bacilli Assessment and Plan (1) Bacteremia due to Streptococcus Current Visit: Yes Status: Acute Code(s): R78.81 - BACTEREMIA; B95.5 - UNSP STREPTOCOCCUS THE CAUSE OF DISEASES CLASSD [facility] SNOMED Code(s): 177682665214 (2) Urinary tract infection Current Visit: Yes Status: Acute Code(s): N39.0 - URINARY TRACT INFECTION, SITE NOT SPECIFIED SNOMED Code(s): 69976909 Plan: 1patient presented to hospital with sepsis in this patient who did have a fever tachycardia source is likely multifactorial patient did have a positive and high clinical suspicious for UTI however her blood cultures are growing streptococci agalactiae which is usually of skin and soft tissue origin, patient did have a bilateral lower extremity swelling and some chronic dermatitis changes to the left leg , noticed to have more erythema to be an likely the source of this bacteremia 2-blood cultures has been repeated document clearance of bacteremia 3-patient antibiotic will be adjusted to cefazolin 2 g every 8 hours and monitor clinical course closely Time with Patient: Less than 30
--- NOTE | 2023-03-25 15:36 | P.PN ---
Subjective Progress Note Date: 03/25/23 This is an 78 year old female with medical history of diabetes mellitus, hyperlipidemia, hypertension, renal disease. Patient also reports having a recent eye surgery due a "black film." patient presents to the hospital with complaints of generalized malaise and chills which started on Thursday. Patient has been mostly bed rest since then due to generalized weakness and reports decreased appetite. Patient has been feeling nausea and had an episode of vomiting yesterday. Patient denies fever at home but does have a temp of 102.6 upon presentation to the ER. Denies chest pain, denies abdominal pain and diarrhea. Denies dizziness or lightheadedness. Patient denies any dysuria. Initial work up reveals a normal white count, creatinine of 1.72. Influenza A/B, Legionella, RSV and covid are negative. Patients initial chest xray showing right upper and middle lobe infiltrate. A follow up xray shows elevation of the right hemidiaphragm this could be transient. We will follow up the chest xray in the AM. Patient is requiring oxygen at 2L nasal cannula and was unable to be weaned with oxygen dropping into the mid 80s. Patient will be admitted for pneumonia and sepsis and started on antibiotic therapy with IV ceftriaxone and IV azithromycin. A procalcitonin level is ordered. 03/25/2023 Patient is evaluated today on the medical floor. Overall reports improvement and feels less fatigued. No fevers overnight. Patient had positive blood culture with strep group b on 2/2 cultures and ID was consulted. Repeat blood cultures are taken. Patients left leg does appear to be more warm and red today than yesterday. The urine culture is showing gram negative bacilli. Patient remains on IV cefazolin. Patient kidney function worsened with IV fluids with BUN 50 creatinine of 1.87, does have chronic kidney disease unsure of baseline labs. Procalcitonin level is elevated at 16.60. Patient is 97% on room air. Review of Systems Constitutional: Denied any fatigue denied any fever. Cardio vascular: denied any chest pain, palpitations Gastrointestinal: denied any nausea, vomiting, diarrhea Pulmonary: Denied any shortness of breath cough Neurologic denied any new focal deficits All inpatient medications were reviewed and appropriate changes in these medications as dictated in the interval history and assessment and plan. PHYSICAL EXAMINATION: GENERAL: The patient is alert and oriented x3, not in any acute distress. Well developed, well nourished. Fatigued. on 2L nasal cannula. HEENT: Pupils are round and equally reacting to light. EOMI. No scleral icterus. No conjunctival pallor. Normocephalic, atraumatic. No pharyngeal erythema. No thyromegaly. CARDIOVASCULAR: S1 and S2 present. No murmurs, rubs, or gallops. PULMONARY: Chest is clear to auscultation, no wheezing or crackles. ABDOMEN: Soft, nontender, nondistended, normoactive bowel sounds. No palpable organomegaly. MUSCULOSKELETAL: No joint swelling or deformity. EXTREMITIES: No cyanosis, clubbing, Peripheral edema. NEUROLOGICAL: Gross neurological examination did not reveal any focal deficits. SKIN: No rashes. Bilateral lower extremity edema with redness left greater than right concern for cellulitis. There is an area of skin excoriation at the ankle on the left leg. Assessment and plan Assessment Right sided pneumonia with sepsis community acquired present on admission Acute hypoxic respiratory failure secondary to above requiring 2L of oxygen via nasal cannula. Strep bacteremia possible source of infection is left lower extremity cellulitis Abnormal urine possibly due to dehydration patient is asymptomatic at this time Acute on chronic kidney disease no labs available for review unsure what baseline creatinine is. Diabetes Mellitus type 2 History of hypertension Hyperlipidemia Obesity. GI prophylaxis DVT prophylaxis Plan Discontinue IV fluids and check proBNP Hold lisinopril and torsemide IV antibiotics per infectious disease, repeat blood cultures pending Continue supplemental oxygen Incentive spirometer 10 x an hour while awake Follow up AM labs PT/OT recommending home on discharge The impression and plan of care has been dictated by Digna Ulloa, Nurse Practitioner as directed. Dr. Xavier MD I have performed a history and physical examination and medical decision making of this patient, discussed the same with the dictator, and agree with the dictators assessment and plan as written, documented as a scribe. Based on total visit time, I have performed more than 50% of this visit. Objective - Vital Signs Vital signs: Vital Signs Temp 98.0 F 03/25/23 12:00 Pulse 62 03/25/23 14:00 Resp 18 03/25/23 14:00 BP 128/73 03/25/23 12:00 Pulse Ox 97 03/25/23 12:00 FiO2 Intake & Output 03/24/23 03/25/23 03/25/23 18:59 06:59 18:59 Intake Total 180 Balance 180 Intake: Oral 180 Other: # Voids 2 - Labs CBC & Chem 7: 03/25/23 06:51 03/25/23 06:51 Labs: Abnormal Lab Results - Last 24 Hours (Table) 03/24/23 03/24/23 03/24/23 Range/Units 10:29 10:29 16:59 RBC (3.80-5.40) m/uL Hgb (11.4-16.0) gm/dL Hct (34.0-46.0) % Plt Count (150-450) k/uL Lymphocytes # (1.0-4.8) k/uL Sodium (137-145) mmol/L Chloride (98-107) mmol/L Carbon Dioxide (22-30) mmol/L BUN (7-17) mg/dL Creatinine (0.52-1.04) mg/dL POC Glucose (mg/dL) 133 H (70-110) mg/dL Hemoglobin A1c 7.2 H (0.0-6.0) % Calcium (8.4-10.2) mg/dL Procalcitonin 16.60 H (0.02-0.09) ng/mL 03/24/23 03/25/23 03/25/23 Range/Units 20:08 06:51 06:51 RBC 3.48 L (3.80-5.40) m/uL Hgb 10.4 L (11.4-16.0) gm/dL Hct 33.0 L (34.0-46.0) % Plt Count 117 L (150-450) k/uL Lymphocytes # 0.7 L (1.0-4.8) k/uL Sodium 136 L (137-145) mmol/L Chloride 109 H (98-107) mmol/L Carbon Dioxide 18 L (22-30) mmol/L BUN 50 H (7-17) mg/dL Creatinine 1.87 H (0.52-1.04) mg/dL POC Glucose (mg/dL) 130 H (70-110) mg/dL Hemoglobin A1c (0.0-6.0) % Calcium 8.3 L (8.4-10.2) mg/dL Procalcitonin (0.02-0.09) ng/mL 03/25/23 Range/Units 12:05 RBC (3.80-5.40) m/uL Hgb (11.4-16.0) gm/dL Hct (34.0-46.0) % Plt Count (150-450) k/uL Lymphocytes # (1.0-4.8) k/uL Sodium (137-145) mmol/L Chloride (98-107) mmol/L Carbon Dioxide (22-30) mmol/L BUN (7-17) mg/dL Creatinine (0.52-1.04) mg/dL POC Glucose (mg/dL) 130 H (70-110) mg/dL Hemoglobin A1c (0.0-6.0) % Calcium (8.4-10.2) mg/dL Procalcitonin (0.02-0.09) ng/mL Microbiology - Last 24 Hours (Table) 03/23/23 21:23 Blood Culture Gram Stain - Preliminary Blood Blood Culture - Preliminary Strep agalactiae - (group b) 03/23/23 21:20 Blood Culture Gram Stain - Preliminary Blood Blood Culture - Preliminary Strep agalactiae - (group b) 03/23/23 21:04 Urine Culture - Preliminary Urine,Catheterized Gram Neg Bacilli Assessment and Plan Time with Patient: Less than 30
[2023-03-25 16:33] LABS: Glucose,Whole Blood 117 mg/dL (70-110)
[2023-03-25 20:18] LABS: Glucose,Whole Blood 165 mg/dL (70-110)
[2023-03-25] MEDS: CHOLECALCIFEROL 25 MCG (1000 IU) TABLET PO SCH (20:28)
[2023-03-25] MEDS: FAMOTIDINE 20 MG TAB PO SCH (20:28)
[2023-03-25] MEDS: ATORVASTATIN 10 MG TAB PO SCH (20:28)
[2023-03-25] MEDS: ASCORBIC ACID 500 MG TAB PO SCH (20:28)
[2023-03-25] MEDS: PIOGLITAZONE 30 MG TAB PO SCH (21:00)
[2023-03-26 06:11] LABS: Glucose,Whole Blood 113 mg/dL (70-110)
[2023-03-26] MEDS: INSULIN ASPART (NovoLOG) 100 UNIT/ML VIAL SQ SCH ×4 (06:14→21:17)
[2023-03-26] MEDS: carvediloL 3.125 MG TAB PO SCH ×2 (06:31→16:53)
[2023-03-26] MEDS ORDERED: FUROSEMIDE 10 MG/ML 4 ML VIAL IV STA (07:36)
[2023-03-26] MEDS: INSULN ASP PRT/INSULIN ASPART 100 UNIT/ML 10 ML VIAL SQ SCH ×2 (08:49→21:57)
[2023-03-26 09:37] LABS: Calcium 8.1 mg/dL (8.4-10.2); Potassium 4.3 mmol/L (3.5-5.1)
[2023-03-26 11:51] LABS: Glucose,Whole Blood 106 mg/dL (70-110)
--- NOTE | 2023-03-26 14:40 | P.PN ---
Subjective Progress Note Date: 03/26/23 Principal diagnosis: UTI and bacteremia Patient is a 78-year-old female with a past medical his significant for diabetes mellitus hypertension hyperlipidemia renal insufficiency presented to the ER for evaluation of generalized malaise and chills , patient noticed to have a positivity was concern for possible UTI and subsequently came up positive for Streptococcus agalactiae, patient did have a chronic swelling to the lower extremity with some erythema to the left leg which was not that prominent on admission Cardiac evaluation that is 03/26/2023, the patient remains to be afebrile, the patient is breathing comfortably on 2 L nasal cannula oxygen, patient denies having any chest pain or shortness of breath or cough no nausea no vomiting no abdominal pain no diarrhea Objective - Vital Signs Vital signs: Vital Signs Temp 97.8 F 03/26/23 12:04 Pulse 65 03/26/23 12:04 Resp 16 03/26/23 12:04 BP 147/67 03/26/23 12:04 Pulse Ox 99 03/26/23 12:04 FiO2 Intake & Output 03/25/23 03/26/23 03/26/23 18:59 06:59 18:59 Intake Total 180 540 Output Total 500 Balance 180 -500 540 Intake: Oral 180 540 Output: Urine 500 Other: # Voids 1 - Exam GENERAL DESCRIPTION: An elderly female lying in bed in no distress RESPIRATORY SYSTEM: Unlabored breathing , decreased breath sounds at bases HEART: S1 S2 regular rate and rhythm , ABDOMEN: Soft , no tenderness EXTREMITIES: Diffuse swelling to bilateral lower extremity left leg with more swelling and erythema - Labs CBC & Chem 7: 03/25/23 06:51 03/26/23 08:00 Labs: Abnormal Lab Results - Last 24 Hours (Table) 03/25/23 03/25/23 03/26/23 Range/Units 16:31 20:17 06:08 Carbon Dioxide (22-30) mmol/L BUN (7-17) mg/dL Creatinine (0.52-1.04) mg/dL Glucose (74-99) mg/dL POC Glucose (mg/dL) 117 H 165 H 113 H (70-110) mg/dL Calcium (8.4-10.2) mg/dL 03/26/23 Range/Units 08:00 Carbon Dioxide 21 L (22-30) mmol/L BUN 48 H (7-17) mg/dL Creatinine 1.80 H (0.52-1.04) mg/dL Glucose 114 H (74-99) mg/dL POC Glucose (mg/dL) (70-110) mg/dL Calcium 8.1 L (8.4-10.2) mg/dL Microbiology - Last 24 Hours (Table) 03/23/23 21:23 Blood Culture Gram Stain - Final Blood Blood Culture - Final Strep agalactiae - (group b) 03/23/23 21:20 Blood Culture Gram Stain - Final Blood Blood Culture - Final Strep agalactiae - (group b) 03/24/23 14:50 Blood Culture - Preliminary Blood 03/23/23 21:04 Urine Culture - Final Urine,Catheterized Escherichia coli Assessment and Plan (1) Bacteremia due to Streptococcus Current Visit: Yes Status: Acute Code(s): R78.81 - BACTEREMIA; B95.5 - UNSP STREPTOCOCCUS THE CAUSE OF DISEASES CLASSD [facility] SNOMED Code(s): 417338928150 (2) Urinary tract infection Current Visit: Yes Status: Acute Code(s): N39.0 - URINARY TRACT INFECTION, SITE NOT SPECIFIED SNOMED Code(s): 42764102 Plan: 1patient presented to hospital with sepsis in this patient who did have a fever tachycardia source is likely multifactorial patient did have a positive and high clinical suspicious for UTI however her blood cultures are growing streptococci agalactiae which is usually of skin and soft tissue origin, patient did have a bilateral lower extremity swelling and some chronic dermatitis changes to the left leg , noticed to have more erythema to be an likely the source of this bacteremia 2-blood cultures has been repeated and has been negative so far as per discussion with the PHYSICIAN PRESIDENT 3-patient to continue with cefazolin 2 g every 8 hours and hopefully finishing therapy with oral Keflex 4-patient urine with an E. coli with intermittent sensitive to cefazolin however the patient clinically do not have any urinary symptoms possible asymptomatic bacteriuria Time with Patient: Less than 30
--- NOTE | 2023-03-26 14:41 | P.PN ---
Subjective Progress Note Date: 03/26/23 This is an 78 year old female with medical history of diabetes mellitus, hyperlipidemia, hypertension, renal disease. Patient also reports having a recent eye surgery due a "black film." patient presents to the hospital with complaints of generalized malaise and chills which started on Thursday. Patient has been mostly bed rest since then due to generalized weakness and reports decreased appetite. Patient has been feeling nausea and had an episode of vomiting yesterday. Patient denies fever at home but does have a temp of 102.6 upon presentation to the ER. Denies chest pain, denies abdominal pain and diarrhea. Denies dizziness or lightheadedness. Patient denies any dysuria. Initial work up reveals a normal white count, creatinine of 1.72. Influenza A/B, Legionella, RSV and covid are negative. Patients initial chest xray showing right upper and middle lobe infiltrate. A follow up xray shows elevation of the right hemidiaphragm this could be transient. We will follow up the chest xray in the AM. Patient is requiring oxygen at 2L nasal cannula and was unable to be weaned with oxygen dropping into the mid 80s. Patient will be admitted for pneumonia and sepsis and started on antibiotic therapy with IV ceftriaxone and IV azithromycin. A procalcitonin level is ordered. 03/25/2023 Patient is evaluated today on the medical floor. Overall reports improvement and feels less fatigued. No fevers overnight. Patient had positive blood culture with strep group b on 2/2 cultures and ID was consulted. Repeat blood cultures are taken. Patients left leg does appear to be more warm and red today than yesterday. The urine culture is showing gram negative bacilli. Patient remains on IV cefazolin. Patient kidney function worsened with IV fluids with BUN 50 creatinine of 1.87, does have chronic kidney disease unsure of baseline labs. Procalcitonin level is elevated at 16.60. Patient is 97% on room air. 03/26/2023 Patient is evaluated today sitting up in the chair, family at the bedside. Left lower extremity remains reddened and edematous and dose of IV lasix is given today. proBNP was found to be 15,200. Patient will continue on IV lasix for the lower extremity edema, fluids remain off at this time. evening 70/30 dose was decreased and blood glucose remains stable at 113 today. No reports of low blood sugar. Patient has been weaned to room air with saturation of 99%. Follow up blood cultures remain negative so far and patient to continue on IV cefazolin pending final cultures to ensure clearance of the bacteremia. Review of Systems Constitutional: Denied any fatigue denied any fever. Cardio vascular: denied any chest pain, palpitations Gastrointestinal: denied any nausea, vomiting, diarrhea Pulmonary: Denied any shortness of breath cough Neurologic denied any new focal deficits All inpatient medications were reviewed and appropriate changes in these medications as dictated in the interval history and assessment and plan. PHYSICAL EXAMINATION: GENERAL: The patient is alert and oriented x3, not in any acute distress. Well developed, well nourished. Fatigued. on 2L nasal cannula. HEENT: Pupils are round and equally reacting to light. EOMI. No scleral icterus. No conjunctival pallor. Normocephalic, atraumatic. No pharyngeal erythema. No thyromegaly. CARDIOVASCULAR: S1 and S2 present. No murmurs, rubs, or gallops. PULMONARY: Chest is clear to auscultation, no wheezing or crackles. ABDOMEN: Soft, nontender, nondistended, normoactive bowel sounds. No palpable organomegaly. MUSCULOSKELETAL: No joint swelling or deformity. EXTREMITIES: No cyanosis, clubbing, Peripheral edema. NEUROLOGICAL: Gross neurological examination did not reveal any focal deficits. SKIN: No rashes. Bilateral lower extremity edema with redness left greater than right concern for cellulitis. There is an area of skin excoriation at the ankle on the left leg. Assessment and plan Assessment Right sided pneumonia with sepsis community acquired present on admission Acute hypoxic respiratory failure secondary to above requiring 2L of oxygen via nasal cannula. Strep bacteremia possible source of infection is left lower extremity cellulitis Chronic lower extremity edema Abnormal urine possibly due to dehydration patient is asymptomatic at this time Acute on chronic kidney disease no labs available for review unsure what baseline creatinine is. Diabetes Mellitus type 2 History of hypertension Hyperlipidemia Obesity. GI prophylaxis DVT prophylaxis Plan IV lasix has been ordered monitor intake and output Hold lisinopril and torsemide IV antibiotics per infectious disease, repeat blood cultures pending Continue supplemental oxygen Incentive spirometer 10 x an hour while awake Follow up AM labs PT/OT recommending home on discharge The impression and plan of care has been dictated by Nurse Sherie Marrero titmiles as directed. Dr. Xavier MD I have performed a history and physical examination and medical decision making of this patient, discussed the same with the dictator, and agree with the dictators assessment and plan as written, documented as a scribe. Based on total visit time, I have performed more than 50% of this visit. Objective - Vital Signs Vital signs: Vital Signs Temp 97.8 F 03/26/23 12:04 Pulse 65 03/26/23 12:04 Resp 16 03/26/23 12:04 BP 147/67 03/26/23 12:04 Pulse Ox 99 03/26/23 12:04 FiO2 Intake & Output 03/25/23 03/26/23 03/26/23 18:59 06:59 18:59 Intake Total 180 660 Output Total 500 Balance 180 -500 660 Intake: Oral 180 660 Output: Urine 500 Other: # Voids 1 - Labs CBC & Chem 7: 03/25/23 06:51 03/26/23 08:00 Labs: Abnormal Lab Results - Last 24 Hours (Table) 03/25/23 03/25/23 03/26/23 Range/Units 16:31 20:17 06:08 Carbon Dioxide (22-30) mmol/L BUN (7-17) mg/dL Creatinine (0.52-1.04) mg/dL Glucose (74-99) mg/dL POC Glucose (mg/dL) 117 H 165 H 113 H (70-110) mg/dL Calcium (8.4-10.2) mg/dL 03/26/23 Range/Units 08:00 Carbon Dioxide 21 L (22-30) mmol/L BUN 48 H (7-17) mg/dL Creatinine 1.80 H (0.52-1.04) mg/dL Glucose 114 H (74-99) mg/dL POC Glucose (mg/dL) (70-110) mg/dL Calcium 8.1 L (8.4-10.2) mg/dL Microbiology - Last 24 Hours (Table) 03/23/23 21:23 Blood Culture Gram Stain - Final Blood Blood Culture - Final Strep agalactiae - (group b) 03/23/23 21:20 Blood Culture Gram Stain - Final Blood Blood Culture - Final Strep agalactiae - (group b) 03/24/23 14:50 Blood Culture - Preliminary Blood 03/23/23 21:04 Urine Culture - Final Urine,Catheterized Escherichia coli Assessment and Plan Time with Patient: Less than 30
[2023-03-26 16:46] LABS: Glucose,Whole Blood 111 mg/dL (70-110)
[2023-03-26 20:09] LABS: Glucose,Whole Blood 136 mg/dL (70-110)
[2023-03-26] MEDS: CHOLECALCIFEROL 25 MCG (1000 IU) TABLET PO SCH (21:33)
[2023-03-26] MEDS: PIOGLITAZONE 30 MG TAB PO SCH (21:34)
[2023-03-26] MEDS: ASCORBIC ACID 500 MG TAB PO SCH (21:34)
[2023-03-26] MEDS: ATORVASTATIN 10 MG TAB PO SCH (21:34)
[2023-03-26] MEDS: FUROSEMIDE 10 MG/ML 4 ML VIAL IV SCH (21:34)
[2023-03-26] MEDS: FAMOTIDINE 20 MG TAB PO SCH (21:34)
[2023-03-27 05:35] VITALS: RESP 16
[2023-03-27 06:10] LABS: Glucose,Whole Blood 85 mg/dL (70-110)
[2023-03-27] MEDS: INSULIN ASPART (NovoLOG) 100 UNIT/ML VIAL SQ SCH ×3 (06:13→16:57)
[2023-03-27] MEDS: carvediloL 3.125 MG TAB PO SCH ×2 (06:38→18:07)
[2023-03-27] MEDS: INSULN ASP PRT/INSULIN ASPART 100 UNIT/ML 10 ML VIAL SQ SCH (09:28)
[2023-03-27] MEDS: FUROSEMIDE 10 MG/ML 4 ML VIAL IV SCH (09:29)
[2023-03-27 10:15] LABS: Calcium 8.4 mg/dL (8.4-10.2); Magnesium 1.6 mg/dL (1.6-2.3); Potassium 4.4 mmol/L (3.5-5.1)
[2023-03-27 11:54] LABS: Glucose,Whole Blood 51 mg/dL (70-110)
[2023-03-27 12:14] LABS: Glucose,Whole Blood 65 mg/dL (70-110)
[2023-03-27 12:37] LABS: Glucose,Whole Blood 131 mg/dL (70-110)
[2023-03-27] MEDS: MAGNESIUM SULFATE-D5W PMX 1 GM in DEXTROSE/WATER 1 100ML.BAG IVPB SCH ×2 (12:56→16:19)
--- NOTE | 2023-03-27 13:17 | US ---
EXAMINATION TYPE: US renals and bladder DATE OF EXAM: 03/27/2023 COMPARISON: CT 2015. CLINICAL INDICATION: Female, 78 years old with history of XIOMARA; XIOMARA EXAM MEASUREMENTS: Right Kidney: 10.1 x 5.1 x 5.2 cm Left Kidney: 11.0 x 5.6 x 4.9 cm Large pt body habitus, difficult visualization Right Kidney: Cortical thinning, no evidence of hydro Left Kidney: No evidence of hydro Bladder: wnl Bilateral Jets seen: No Suboptimal study. No hydronephrosis seen bilaterally. No concerning masses. Bladder appears within no rmal limits. IMPRESSION: Suboptimal study without hydronephrosis seen bilaterally.
--- NOTE | 2023-03-27 15:19 | P.PN ---
Subjective Progress Note Date: 03/27/23 Principal diagnosis: UTI and bacteremia Patient is a 78-year-old female with a past medical his significant for diabetes mellitus hypertension hyperlipidemia renal insufficiency presented to the ER for evaluation of generalized malaise and chills , patient noticed to have a positivity was concern for possible UTI and subsequently came up positive for Streptococcus agalactiae, patient did have a chronic swelling to the lower extremity with some erythema to the left leg which was not that prominent on admission Cardiac evaluation that is 03/27/2023, the patient continues to be afebrile, the patient is breathing comfortably on room air, patient denies having any chest pain or shortness of breath and no cough , the patient denies nausea no vomiting no abdominal pain no diarrhea, the patient is feeling better wants to go home Objective - Vital Signs Vital signs: Vital Signs Temp 98.1 F 03/27/23 08:00 Pulse 69 03/27/23 08:00 Resp 16 03/27/23 08:00 BP 144/60 03/27/23 08:00 Pulse Ox 97 03/27/23 08:00 FiO2 Intake & Output 03/26/23 03/27/23 03/27/23 18:59 06:59 18:59 Intake Total 1800 10 180 Output Total 700 600 Balance 1100 -590 180 Intake: IV 10 Invasive Line 2 10 Oral 1800 180 Output: Urine 700 600 Other: Voiding Method Toilet - Exam GENERAL DESCRIPTION: An elderly female lying in bed in no distress RESPIRATORY SYSTEM: Unlabored breathing , decreased breath sounds at bases HEART: S1 S2 regular rate and rhythm , ABDOMEN: Soft , no tenderness EXTREMITIES: Bilateral legs are currently wrapped With Mateus wrap - Labs CBC & Chem 7: 03/25/23 06:51 03/27/23 09:33 Labs: Abnormal Lab Results - Last 24 Hours (Table) 03/26/23 03/26/23 03/27/23 Range/Units 16:44 20:07 09:33 Chloride 108 H (98-107) mmol/L BUN 47 H (7-17) mg/dL Creatinine 1.91 H (0.52-1.04) mg/dL Glucose 105 H (74-99) mg/dL POC Glucose (mg/dL) 111 H 136 H (70-110) mg/dL 05/19/23 05/19/23 05/19/23 Range/Units 11:53 12:13 12:36 Chloride (98-107) mmol/L BUN (7-17) mg/dL Creatinine (0.52-1.04) mg/dL Glucose (74-99) mg/dL POC Glucose (mg/dL) 51 L 65 L 131 H (70-110) mg/dL Microbiology - Last 24 Hours (Table) 03/24/23 14:50 Blood Culture - Preliminary Blood 03/23/23 21:23 Blood Culture Gram Stain - Final Blood Blood Culture - Final Strep agalactiae - (group b) 03/23/23 21:20 Blood Culture Gram Stain - Final Blood Blood Culture - Final Strep agalactiae - (group b) Assessment and Plan (1) Bacteremia due to Streptococcus Current Visit: Yes Status: Acute Code(s): R78.81 - BACTEREMIA; B95.5 - UNSP STREPTOCOCCUS THE CAUSE OF DISEASES CLASSD [facility] SNOMED Code(s): 622311564723 (2) Urinary tract infection Current Visit: Yes Status: Acute Code(s): N39.0 - URINARY TRACT INFECTION, SITE NOT SPECIFIED SNOMED Code(s): 79768823 Plan: 1patient presented to hospital with sepsis in this patient who did have a fever tachycardia source is likely multifactorial patient did have a positive and high clinical suspicious for UTI however her blood cultures are growing streptococci agalactiae which is usually of skin and soft tissue origin, patient did have a bilateral lower extremity swelling and some chronic dermatitis changes to the left leg , noticed to have more erythema to be an likely the source of this bacteremia 2-blood cultures has been repeated and has been negative so far as per d iscussion with the HEALTH RESEARCHER 3-patient seemed to have shown clinical improvement and will continue with cef azolin 2 g every 8 hours and plan to finish therapy with oral Keflex 10 days discussed with the admitting team working on discharge 4-patient urine with an E. coli with intermittent sensitive to cefazolin however the patient clinically do not have any urinary symptoms possible asymptomatic bacteriuria Time with Patient: Less than 30
[2023-03-27 16:24] VITALS: BP 153/67; PULSE 77; TEMP 97.4
[2023-03-27 16:40] LABS: Glucose,Whole Blood 123 mg/dL (70-110)
[2023-03-27] MEDS ORDERED: INSULN ASP PRT/INSULIN ASPART 100 UNIT/ML 10 ML VIAL SQ SCH (17:30)
[2023-03-27] MEDS ORDERED: HEPARIN SODIUM,PORCINE/PF 5,000 UNIT/0.5 ML SYRINGE SQ SCH (21:00)
--- NOTE | 2023-03-27 23:31 | P.DS ---
Providers Date of admission: 03/23/23 23:12 Attending physician: Nirmal Saleh MD Consults: 03/24/23 13:35 Consult Physician Routine Consulting Provider: Jese Silva Consult Reason/Comments: bacteremia Do you want consulting provider notified?: Yes Primary care physician: Isela Voss DO Hospital Course: Final Diagnosis Right sided pneumonia with sepsis community acquired present on admission Acute hypoxic respiratory failure secondary to above requiring 2L of oxygen via nasal cannula. Strep bacteremia possible source of infection is left lower extremity cellulitis Chronic lower extremity edema E.Coli found on urine culture likely an asymptomatic bacteriurea Acute on chronic kidney disease no labs available for review unsure what baseline creatinine is. Diabetes Mellitus type 2 History of hypertension Hyperlipidemia Obesity. Do Not Intubate/Do Not Resuscitate Discharge Disposition Patient is stable for discharge. Recommending to continue oral antibiotics in the form or oral keflex for 10 days. Infectious disease follow up. Patient is resumed on oral diuretics on discharge. Lisinopril has been decreased to 20 mg daily. Insulin has been decreased to 8 units of 70/30 BID due to episodes of hypglycemia. Recommend to continue incentive spirometer on discharge. Patient to repeat labs in 2 to 3 days and recommending to follow up with patients own pot holder binder. Hospital Course. This is an 78 year old female with medical history of diabetes mellitus, hyperlipidemia, hypertension, renal disease. Patient also reports having a recent eye surgery due a "black film." patient presents to the hospital with complaints of generalized malaise and chills which started on Thursday. Patient has been mostly bed rest since then due to generalized weakness and reports decreased appetite. Patient has been feeling nausea and had an episode of vomiting yesterday. Patient denies fever at home but does have a temp of 102.6 upon presentation to the ER. Denies chest pain, denies abdominal pain and diarrhea. Denies dizziness or lightheadedness. Patient denies any dysuria. Initial work up reveals a normal white count, creatinine of 1.72. Influenza A/B, Legionella, RSV and covid are negative. Patients initial chest xray showing right upper and middle lobe infiltrate. A follow up xray shows elevation of the right hemidiaphragm this could be transient. Patient is requiring oxygen at 2L nasal cannula and was unable to be weaned with oxygen dropping into the mid 80s. Patient was admitted for pneumonia and sepsis and started on antibiotic therapy with IV ceftriaxone and IV azithromycin. Infectious disease was consulted on this patient. Patient has chronic lower extremity edema maintained on oral diuretics outapatient and does have evidence of cellulitis worse on the left leg and had strep bacteremia on 2/2 cultures on admission likely due to skin source. Urine culture also finalized showing E.Coli patient has remained asymptomatic. Patient had elevated procalcitonin level of 16.60. Antibiotics were changed to [place] [address], Patient is given IV lasix for the lower extremity edema. Does have chronic kidney disease unsure of baseline patient d oes not know either, does follow up with a pot holder binder. White count has remained negative. Cellulitis is improving. Patient is weaned off oxygen to room air. Lungs are clear throughout no cough and no shortness of breath. Patient has been tolerating activity. Follow up blood culture remains negative. Patient cleared by ID for discharge home and close follow up. Please see medication reconciliation for a list of current medication. Thank you for allowing us to participate in the care of this patient. ression and plan of care has been dictated by Nurse Tamara Marrero as directed. Dr. Xavier MD I have performed a history and physical examination and medical decision making of this patient, discussed the same with the dictator, and agree with the dictat ors assessment and plan as written, documented as a scribe. Based on total visit time, I have performed more than 50% of this visit. Patient Condition at Discharge: Stable Plan - Discharge Summary Discharge Rx Participant: No New Discharge Prescriptions: New Furosemide [Lasix] 20 mg PO BID #60 tab Famotidine [Pepcid] 20 mg PO HS #30 tab lisinopriL [Prinivil] 20 mg PO DAILY #30 tablet Albuterol Inhaler [Ventolin Hfa Inhaler] 1 puff INHALATION QID PRN #8 gm PRN Reason: Shortness Of Breath Or Wheezing Cephalexin [Keflex] 500 mg PO Q8HR 10 Days #30 cap Insulin NPH Hum/Reg Insulin Hm [Novolin 70-30 Flexpen] 8 units SQ BID #1 each Acetaminophen Tab [Tylenol] 650 mg PO Q6HR PRN tab PRN Reason: Fever and/ or Mild Pain Continue Atorvastatin [Lipitor] 10 mg PO HS Ascorbic Acid [Vitamin C] 500 mg PO HS Cholecalciferol [Vitamin D3 (25 Mcg = 1000 Iu)] 25 mcg PO HS carvediloL [Coreg] 3.125 mg PO BID Pioglitazone [Actos] 30 mg PO HS Discontinued lisinopriL 40 mg PO HS Insulin Aspart Prot/Insuln Asp [NovoLOG MIX 70-30 Flexpen] 14 unit SQ HS Insulin Aspart Prot/Insuln Asp [NovoLOG MIX 70-30 Flexpen] 17 unit SQ DAILY Torsemide [Demadex] 5 - 10 mg PO DAILY Discharge Medication List Atorvastatin [Lipitor] 10 mg PO HS 09/14/16 [History] Ascorbic Acid [Vitamin C] 500 mg PO HS 12/21/21 [History] Cholecalciferol [Vitamin D3 (25 Mcg = 1000 Iu)] 25 mcg PO HS 12/21/21 [History] Pioglitazone [Actos] 30 mg PO HS 03/24/23 [History] carvediloL [Coreg] 3.125 mg PO BID 03/24/23 [History] Acetaminophen Tab [Tylenol] 650 mg PO Q6HR PRN tab 03/27/23 [Rx] Albuterol Inhaler [Ventolin Hfa Inhaler] 1 puff INHALATION QID PRN #8 gm 03/27/23 [Rx] Cephalexin [Keflex] 500 mg PO Q8HR 10 Days #30 cap 03/27/23 [Rx] Famotidine [Pepcid] 20 mg PO HS #30 tab 03/27/23 [Rx] Furosemide [Lasix] 20 mg PO BID #60 tab 03/27/23 [Rx] Insulin NPH Hum/Reg Insulin Hm [Novolin 70-30 Flexpen] 8 units SQ BID #1 each 03/27/23 [Rx] lisinopriL [Prinivil] 20 mg PO DAILY #30 tablet 03/27/23 [Rx] Follow up Appointment(s)/Referral(s): Luis Enrique Leong DO [REFERRING] - 1-2 days Jese Silva MD [STAFF PHYSICIAN] - 1 Week Ambulatory/Diagnostic Orders: Basic Metabolic Panel [LAB.AMB] Time Frame: 3 Days, Location: None Selected Complete Blood Count w/diff [LAB.AMB] Time Frame: 3 Days, Location: None Selected Patient Instructions/Handouts: Urinary Tract Infection in Women (DC), Cellulitis (GEN) Activity/Diet/Wound Care/Special Instructions: Follow up with your pot holder binder on discharge Continue antibiotics for 10 days return to the EC with worsening redness, swelling, fever. Repeat labs in 2 to 3 days Albuterol inhaler as needed for shortness of breath or wheezing. Continue to elevate lower extremities while ambulating Continue incentive spirometer 10 x an hour while awake Discharge Disposition: HOME SELF-CARE
== END 2023-03-27 18:23 | disposition home or self-care (01) | DRG 871 ==
LOC: EC 20:38 → 3SCARD 23:12
PROVIDERS: ADMIT Internal Medicine; ATTEND Internal Medicine
DX: A40.9 Streptococcal sepsis, unspecified (principal); J18.9 Pneumonia, unspecified organism; J96.01 Acute respiratory failure with hypoxia; Z68.41 Body mass index [BMI] 40.0-44.9, adult; N17.9 Acute kidney failure, unspecified; N39.0 Urinary tract infection, site not specified; L03.116 Cellulitis of left lower limb; E11.22 Type 2 diabetes mellitus with diabetic chronic kidney disease; E78.5 Hyperlipidemia, unspecified; E66.9 Obesity, unspecified; I12.9 Hypertensive chronic kidney disease with stage 1 through stage 4 chronic kidney disease, or unspecified chronic kidney disease; Z20.822 Contact with and (suspected) exposure to COVID-19; Z28.311 Partially vaccinated for COVID-19; N18.9 Chronic kidney disease, unspecified; B96.20 Unspecified Escherichia coli [E. coli] as the cause of diseases classified elsewhere; Z79.4 Long term (current) use of insulin; Z79.84 Long term (current) use of oral hypoglycemic drugs; Z79.899 Other long term (current) drug therapy; E86.0 Dehydration; Z66 Do not resuscitate
CPT/HCPCS: 36415; 71045; 71046; 76770; 80048; 80053; 81001; 83036; 83605; 83735; 83880; 84145; 85025; 87040; 87077; 87086; 87186; 87449; 87636; 93005; 94760; 96365; 96366; 96368; 96375; 99291

== ENCOUNTER → 2023-04-16 | Outpatient (CLI) | payer MEDICARE | END | disposition home or self-care (01) | LOC: LABWHC1 11:21 | PROVIDERS: ATTEND Internal Medicine Infectious Disease | DX: L03.116 Cellulitis of left lower limb (principal) | CPT/HCPCS: 87040 ==

== ENCOUNTER 2023-09-18 17:24 | Emergency (ER) | payer MEDICARE ==
[2023-09-18 17:49] VITALS: RESP 18
--- NOTE | 2023-09-18 18:24 | ED ---
General Adult HPI - General Chief complaint: Head Injury Stated complaint: Fall, head injury Time Seen by Provider: 09/18/23 17:37 Source: patient, EMS, RN notes reviewed Mode of arrival: EMS Limitations: no limitations - History of Present Illness Initial comments: 78-year-old female presents to the emergency department chief complaint of mechanical fall. She states that she was walking into a restaurant this afternoon when she tripped on the left on the sidewalk causing her to fall forward and hit the right side of her forehead. She is states she is unsure what her she hit her head on a pole or the concrete. She states that she did not lose consciousness, denies blood thinners. She denies headache, nausea, vomiting. She has been ambulating well since the fall. She denies any other injury. - Related Data Home Medications Medication Instructions Recorded Confirmed Atorvastatin [Lipitor] 10 mg PO HS 09/14/16 03/24/23 Ascorbic Acid [Vitamin C] 500 mg PO HS 12/21/21 03/24/23 Cholecalciferol [Vitamin D3 (25 25 mcg PO HS 12/21/21 03/24/23 Mcg = 1000 Iu)] Pioglitazone [Actos] 30 mg PO HS 03/24/23 03/24/23 carvediloL [Coreg] 3.125 mg PO BID 03/24/23 03/24/23 Previous Rx's Medication Instructions Recorded Acetaminophen Tab [Tylenol] 650 mg PO Q6HR PRN tab 03/27/23 Albuterol Inhaler [Ventolin Hfa 1 puff INHALATION QID PRN #8 gm 03/27/23 Inhaler] Cephalexin [Keflex] 500 mg PO Q8HR 10 Days #30 cap 03/27/23 Famotidine [Pepcid] 20 mg PO HS #30 tab 03/27/23 Furosemide [Lasix] 20 mg PO BID #60 tab 03/27/23 Insulin NPH Hum/Reg Insulin Hm 8 units SQ BID #1 each 03/27/23 [Novolin 70-30 Flexpen] lisinopriL [Prinivil] 20 mg PO DAILY #30 tablet 03/27/23 Allergies Allergy/AdvReac Type Severity Reaction Status Date / Time No Known Allergies Allergy Verified 03/24/23 08:36 Review of Systems ROS Statement: Those systems with pertinent positive or pertinent negative responses have been documented in the HPI. ROS Other: All systems not noted in ROS Statement are negative. Past Medical History Past Medical History: Diabetes Mellitus, Hyperlipidemia, Hypertension, Renal Disease History of Any Multi-Drug Resistant Organisms: None Reported Past Surgical History: Appendectomy, Cholecystectomy Additional Past Surgical History / Comment(s): fluid drained from heart 20 years ago Past Anesthesia/Blood Transfusion Reactions: No Reported Reaction Past Psychological History: No Psychological Hx Reported Smoking Status: Never smoker Past Alcohol Use History: None Reported Past Drug Use History: None Reported General Exam Limitations: no limitations General appearance: alert, in no apparent distress Head exam: Present: other (scalp hematoma on right forehead) Eye exam: Present: normal appearance, PERRL, EOMI. Absent: scleral icterus, conjunctival injection, periorbital swelling ENT exam: Present: normal exam, mucous membranes moist Neck exam: Present: normal inspection, full ROM. Absent: tenderness, meningismus, lymphadenopathy Respiratory exam: Present: normal lung sounds bilaterally. Absent: respiratory distress, wheezes, rales, rhonchi, stridor Cardiovascular Exam: Present: regular rate, normal rhythm, systolic murmur. Absent: diastolic murmur, rubs, gallop, clicks GI/Abdominal exam: Present: soft, normal bowel sounds. Absent: distended, tenderness, guarding, rebound, rigid Extremities exam: Present: normal inspection, full ROM, normal capillary refill. Absent: tenderness, pedal edema, joint swelling, calf tenderness Back exam: Present: normal inspection, full ROM. Absent: tenderness Neurological exam: Present: alert, oriented X3, CN II-XII intact, normal gait Psychiatric exam: Present: normal affect, normal mood Skin exam: Present: warm, dry, intact, normal color. Absent: rash Course Vital Signs 09/18/23 09/18/23 17:28 18:35 Temperature 97.5 F L Pulse Rate 75 76 Respiratory 18 18 Rate Blood Pressure 160/66 154/62 O2 Sat by Pulse 96 95 Oximetry Medical Decision Making - Medical Decision Making Was pt. sent in by a medical professional or institution (, PA, UTILITY SYSTEM OPERATOR, urgent care, hospital, or retirement...) When possible be specific @ -No Did you speak to anyone other than the patient for history (EMS, parent, family, police, friend...)? What history was obtained from this source @ -No Did you review nursing and triage notes (agree or disagree)? Why? @ -I reviewed and agree with nursing and triage notes Were old charts reviewed (outside hosp., previous admission, EMS record, old EKG, old radiological studies, urgent care reports/EKG's, retirement records)? Report findings @ -No old charts were reviewed Differential Diagnosis (chest pain, altered mental status, abdominal pain women, abdominal pain men, vaginal bleeding, weakness, fever, dyspnea, syncope, headache, dizziness, GI bleed, back pain, seizure, CVA, palpatations, mental health, musculoskeletal)? @ -Fall, head injury, intracranial hemorrhage, fracture, this list is not all- inclusive EKG interpreted by me (3pts min.). @ -None X-rays interpreted by me (1pt min.). @ -None done CT interpreted by me (1pt min.). @ -CT brain and C-spine shows no acute fracture or intracranial process U/S interpreted by me (1pt. min.). @ -None done What testing was considered but not performed or refused? (CT, X-rays, U/S, labs)? Why? @ -None What meds were considered but not given or refused? Why? @ -None Did you discuss the management of the patient with other professionals (professionals i.e. , PA, UTILITY SYSTEM OPERATOR, lab, RT, psych nurse, social media senior associate, serging machine operator, teacher, code enforcement officer, case work aide)? Give summary @ -No Was smoking cessation discussed for >3mins.? @ -No Was critical care preformed (if so, how long)? @ -No Were there social determinants of health that impacted care today? How? (Homelessness, low income, unemployed, alcoholism, drug addiction, transportation, low edu. Level, literacy, decrease access to med. care, correction, rehab)? @ -No Was there de-escalation of care discussed even if they declined (Discuss DNR or withdrawal of care, Hospice)? DNR status @ -No What co-morbidities impacted this encounter? (DM, HTN, Smoking, COPD, CAD, Cancer, CVA, ARF, Chemo, Hep., AIDS, mental health diagnosis, sleep apnea, morbid obesity)? @ -None Was patient admitted / discharged? Hospital course, mention meds given and route, prescriptions, significant lab abnormalities, going to OR and other pertinent info. @ -Patient presented to emergency department chief complaint of mechanical fall causing her to hit her head. She does have a scalp hematoma on the right. She is feeling well, denies headache, vomiting, blood thinners, loss of consciousness. CT brain and C-spine shows no acute fracture or intracranial process. Patient is feeling well. Patient will be discharged home. Patient stable at time of discharge. Case discussed with Dr. Shook Undiagnosed new problem with uncertain prognosis? @ -No Drug Therapy requiring intensive monitoring for toxicity (Heparin, Nitro, Insulin, Cardizem)? @ -No Were any procedures done? @ -No Diagnosis/symptom? @ -scalp hematoma Acute, or Chronic, or Acute on Chronic? @ -acute Uncomplicated (without systemic symptoms) or Complicated (systemic symptoms)? @ -uncomplicated Side effects of treatment? @ -No Exacerbation, Progression, or Severe Exacerbation? @ -No Poses a threat to life or bodily function? How? (Chest pain, [place], [place], pneumonia, PE, COPD, DKA, ARF, appy, cholecystitis, CVA, Diverticulitis, Homicidal, Suicidal, threat to staff... and all critical care pts) @ -No Disposition Clinical Impression: Fall, Closed head injury Disposition: HOME SELF-CARE Condition: Stable Instructions (If sedation given, give patient instructions): Head Injury (ED) Additional Instructions: Please follow up with your primary care provider. Return to the emergency department for new or worsening symptoms. Is patient prescribed a controlled substance at d/c from ED?: No Referrals: Isela Voss DO [Primary Care Provider] - 1-2 days
--- NOTE | 2023-09-18 18:54 | CT ---
EXAMINATION TYPE: CT brain cspine wo con CT DLP: 1433.5 mGycm, Automated exposure control for dose reduction was used. DATE OF EXAM: 09/18/2023 6:20 PM COMPARISON: None. CLINICAL INDICATION:Female, 78 years old with history of fall; fall TECHNIQUE: Brain: Multiple axial CT images of the brain were obtained without IV contrast. Cspine: Axial CT images from the skull base to the inferior aspect of T2 we obtained without intraven ous contrast. Coronal and sagittal reformatted images were also reviewed. FINDINGS: Brain: Extra-axial spaces: No abnormal extra-axial fluid collections. Ventricular system: Dilatation in proportion to cerebral atrophy. Cerebral parenchyma: No acute intraparenchymal hemorrhage or mass effect. No definite loss of meraz-wh ite matter distinction. Moderate generalized brain atrophy. Moderate patchy hypoattenuation throughou t the bilateral cerebral white matter, nonspecific but most often seen with chronic microvascular isc hemic changes. Cerebellum: No acute abnormality. Mass effect: No evidence of midline shift. Intracranial vasculature: Atherosclerotic calcifications of the intracranial vessels. Soft tissues: Small soft tissue scalp hematoma over the right forehead. Calvarium/osseous structures: No evidence of calvarial fracture. Paranasal sinuses and mastoid air cells: Clear. Visualized orbits: Orbital contents appear grossly intact. Cervical spine: Fracture: None. Osseous structures, spinal canal/neural foramina: Generalized osteopenia. Moderate diffuse degenerati ve changes with mild/moderate canal and neural foraminal stenoses greatest at C5-C6 and C6-C7. Vertebral alignment: No traumatic malalignment. Neck soft tissues: Prevertebral soft tissues are within normal limits. Other: The airway is patent. Moderate calcification at the bilateral carotid bifurcations and along t he aortic arch, especially at the origin of the left subclavian artery. Included lung apices reveal n o acute abnormality. Small nodularity at the apices, under 5 mm, likely benign but could be followed up with a CT chest in 3-6 months if clinically indicated. IMPRESSION: Brain: Moderate generalized brain atrophy and chronic microvascular ischemic changes. No acute intracranial CT abnormality. Small right frontal scalp hematoma. Cervical spine: No evidence of acute cervical spine fracture or traumatic malalignment. Under multilevel spondylosis.
[2023-09-18 19:55] VITALS: BP 146/61; PULSE 74; TEMP 98.2
== END 2023-09-18 19:31 | disposition home or self-care (01) ==
LOC: EC 17:24
DX: S00.03XA Contusion of scalp, initial encounter (principal); E11.9 Type 2 diabetes mellitus without complications; E78.5 Hyperlipidemia, unspecified; I10 Essential (primary) hypertension; Z79.84 Long term (current) use of oral hypoglycemic drugs; Z79.899 Other long term (current) drug therapy; W01.198A Fall on same level from slipping, tripping and stumbling with subsequent striking against other object, initial encounter; Y92.480 Sidewalk as the place of occurrence of the external cause; Y93.01 Activity, walking, marching and hiking
CPT/HCPCS: 70450; 72125; 99284

== ENCOUNTER 2023-10-07 12:27 | Emergency (ER) | payer MEDICARE ==
[2023-10-07 12:39] VITALS: BP 129/75; PULSE 77; RESP 20; TEMP 99
--- NOTE | 2023-10-07 13:08 | ED ---
Fall HPI - General Chief Complaint: Fall Stated Complaint: facial swelling Time Seen by Provider: 10/07/23 12:40 Source: patient, family Mode of arrival: wheelchair - History of Present Illness Initial Comments: The patient is a 78-year-old female who presents emergency room accompanied by her family for pain and swelling to the head and face. Patient tripped and fell about 2 and half weeks ago. She was seen on September 18 in her emergency room and had negative head CT and C-spine imaging studies. Patient states that initially she had a large hematoma over the right frontal scalp however over the last several days she has had worsening headaches and swelling to the right cheek, nose and upper lip. She denies any new falls. She states that this weekend she has had a few headaches that did not improve with Tylenol however they have since improved over the last 2 days. Patient is not on any anticoagulation. She denies any vision changes, dizziness, neck pain, nausea or vomiting or other neurological symptoms. Denies any numbness, tingling or paralysis of extremities. Patient states that the pain follows the swelling. She states that initially it was worse in the cheek and today it is worse in the upper lip and right lateral nose area. Denies any dental trauma. - Related Data Home Medications Medication Instructions Recorded Confirmed Atorvastatin [Lipitor] 10 mg PO HS 09/14/16 03/24/23 Ascorbic Acid [Vitamin C] 500 mg PO HS 12/21/21 03/24/23 Cholecalciferol [Vitamin D3 (25 25 mcg PO HS 12/21/21 03/24/23 Mcg = 1000 Iu)] Pioglitazone [Actos] 30 mg PO HS 03/24/23 03/24/23 carvediloL [Coreg] 3.125 mg PO BID 03/24/23 03/24/23 Previous Rx's Medication Instructions Recorded Acetaminophen Tab [Tylenol] 650 mg PO Q6HR PRN tab 03/27/23 Albuterol Inhaler [Ventolin Hfa 1 puff INHALATION QID PRN #8 gm 03/27/23 Inhaler] Cephalexin [Keflex] 500 mg PO Q8HR 10 Days #30 cap 03/27/23 Famotidine [Pepcid] 20 mg PO HS #30 tab 03/27/23 Furosemide [Lasix] 20 mg PO BID #60 tab 03/27/23 Insulin NPH Hum/Reg Insulin Hm 8 units SQ BID #1 each 03/27/23 [Novolin 70-30 Flexpen] lisinopriL [Prinivil] 20 mg PO DAILY #30 tablet 03/27/23 Allergies Allergy/AdvReac Type Severity Reaction Status Date / Time No Known Allergies Allergy Verified 03/24/23 08:36 Review of Systems ROS Statement: Those systems with pertinent positive or pertinent negative responses have been documented in the HPI. ROS Other: All systems not noted in ROS Statement are negative. Past Medical History Past Medical History: Diabetes Mellitus, Hyperlipidemia, Hypertension, Renal Disease History of Any Multi-Drug Resistant Organisms: None Reported Past Surgical History: Appendectomy, Cholecystectomy Additional Past Surgical History / Comment(s): fluid drained from heart 20 years ago Past Anesthesia/Blood Transfusion Reactions: No Reported Reaction Past Psychological History: No Psychological Hx Reported Smoking Status: Never smoker Past Alcohol Use History: None Reported Past Drug Use History: None Reported General Exam Limitations: no limitations General appearance: alert, in no apparent distress Head exam: Present: other (mild R periorbital ecchymosis. mild swelling of the right cheek and lateral nose and upper lip. no erytheam or warmth. no dental trauma.) Expanded Head exam: Present: hematoma, other (no hematympanum b/l). Absent: raccoon eyes, elizondo's sign Eye exam: Present: normal appearance, PERRL Neck exam: Present: full ROM. Absent: tenderness Respiratory exam: Present: normal lung sounds bilaterally Cardiovascular Exam: Present: regular rate, normal rhythm Extremities exam: Present: full ROM Back exam: Present: full ROM Neurological exam: Present: alert, oriented X3, CN II-XII intact Psychiatric exam: Present: normal affect, normal mood Skin exam: Present: warm, dry Course Vital Signs 10/07/23 12:33 Temperature 99 F Pulse Rate 77 Respiratory 20 Rate Blood Pressure 129/75 O2 Sat by Pulse 96 Oximetry - Reevaluation(s) Reevaluation #1: 10/07/23 1018 The patient is alert oriented well-appearing emergency room. There is no hemotympanum, raccoon eyes or Elizondo sign on physical exam. She is well- appearing with mild swelling to the right side of face. Airways intact with no sublingual swelling. No or lower lip swelling. Her pain and pressure is worse with the swollen areas. I discussed imaging results with the patient and family at bedside. CT of the head and face are negative for any fractures or other acute changes. I discussed signs to return to the emergency room including but not limited to any lethargy, abnormal behavior, abnormal speech, vomiting, vision changes, worsening pain or new concerning symptoms. I discussed using cold compresses to help with the swelling as well. I discussed with them how gravity will take the swelling and ecchymosis to different pockets. they understand and agree to treatment and discharge plan. i discussed patients symptoms, workup and dispo with attending physician Dr Al today. Medical Decision Making - Medical Decision Making Was pt. sent in by a medical professional or institution (, PA, HAND SPLITTER, urgent care, hospital, or jail...) When possible be specific @ -[No] Did you speak to anyone other than the patient for history (EMS, parent, family, police, friend...)? What history was obtained from this source @ -Family members at the bedside Did you review nursing and triage notes (agree or disagree)? Why? @ -[I reviewed and agree with nursing and triage notes] Were old charts reviewed (outside hosp., previous admission, EMS record, old EKG, old radiological studies, urgent care reports/EKG's, jail records)? Report findings @ -Yes old charts reviewed. The 09/18/2023 ER Visit with CAT scan was reviewed by myself at today's visit and was negative for any acute changes at that point. External medication records including that the patient is not on antic oagulation was also reviewed Differential Diagnosis (chest pain, altered mental status, abdominal pain women, abdominal pain men, vaginal bleeding, weakness, fever, dyspnea, syncope, headache, dizziness, GI bleed, back pain, seizure, CVA, palpatations, mental health, musculoskeletal)? @ -Head injury without loss consciousness, head contusion, facial contusion, facial fracture EKG interpreted by me (3pts min.). @ -[As above] X-rays interpreted by me (1pt min.). @ -[None done] CT interpreted by me (1pt min.). @ -CT brain and CT face were negative for any fractures or other acute changes. U/S interpreted by me (1pt. min.). @ -[None done] What testing was considered but not performed or refused? (CT, X-rays, U/S, labs)? Why? @ -[None] What meds were considered but not given or refused? Why? @ -Patient is requesting medication for insomnia however I spoke with attending physician who states that he has emergency room practitioners do not prescribe these and patient will need to follow up with the primary to have anything prescribed. Recommended melatonin to see if this will help with the sleeping issues. Did you discuss the management of the patient with other professionals (professionals i.e. , PA, HAND SPLITTER, lab, RT, psych nurse, social media editor, box turner, teacher, bank secrecy act officer, piano case and bench assembler)? Give summary @ -[No] Was smoking cessation discussed for >3mins.? @ -[No] Was critical care preformed (if so, how long)? @ -[No] Were there social determinants of health that impacted care today? How? (Homelessness, low income, unemployed, alcoholism, drug addiction, transportation, low edu. Level, literacy, decrease access to med. care, skilled nursing, rehab)? @ -[No] Was there de-escalation of care discussed even if they declined (Discuss DNR or withdrawal of care, Hospice)? DNR status @ -[No] What co-morbidities impacted this encounter? (DM, HTN, Smoking, COPD, CAD, Cancer, CVA, ARF, Chemo, Hep., AIDS, mental health diagnosis, sleep apnea, morbid obesity)? @ -[None] Was patient admitted / discharged? Hospital course, mention meds given and route, prescriptions, significant lab abnormalities, going to OR and other pertinent info. @ -The patient is well-appearing emergency room and nontoxic appearing. She is alert and oriented with no signs of a basilar skull fracture or other acute changes. The head CT and facial CT are negative for any fractures or other acute changes. I discussed the use of cool compresses to help with the swelling and follow-up with the PCP. We discussed signs to return to the emergency room. Patient is stable to follow up as an outpatient and does not require hospital admission at this time. Undiagnosed new problem with uncertain prognosis? @ -[No] Drug Therapy requiring intensive monitoring for toxicity (Heparin, Nitro, Insulin, Cardizem)? @ -[No] Were any procedures done? @ -[No] Diagnosis/symptom? @ -Head injury without loss consciousness, facial contusion Acute, or Chronic, or Acute on Chronic? @ -Acute Uncomplicated (without systemic symptoms) or Complicated (systemic symptoms)? @ -Uncomplicated Side effects of treatment? @ -[No] Exacerbation, Progression, or Severe Exacerbation? @ -[No] Poses a threat to life or bodily function? How? (Chest pain, USA, SD, pneumonia, PE, COPD, DKA, ARF, appy, cholecystitis, CVA, Diverticulitis, Homicidal, Suicidal, threat to staff... and all critical care pts) @ -[No] - Lab Data Lab Results 10/07/23 10/07/23 Range/Units 15:12 15:26 POC Glucose (mg/dL) 65 L 79 (70-110) mg/dL POC Glu Inside Upholsterer ID Olya Lord Brandy - Radiology Data Radiology results: report reviewed, image reviewed Disposition Clinical Impression: Facial swelling, Head injury Disposition: HOME SELF-CARE Condition: Good Additional Instructions: Melatonin OTC is what is recommended for initial management of insomnia. Other medications will need to be prescribed by PCP. Is patient prescribed a controlled substance at d/c from ED?: No Referrals: Peter Reyes DO [Primary Care Provider] - 1-2 days Time of Disposition: 15:28
--- NOTE | 2023-10-07 14:12 | CT ---
EXAMINATION TYPE: CT brain wo con, CT facial bones wo con DATE OF EXAM: 10/07/2023 COMPARISON: 09/18/2023. HISTORY: Fall with right-sided ecchymosis. CT DLP: 1001.3 mGycm Automated exposure control for dose reduction was used. FINDINGS: There is no acute intracranial hemorrhage, mass, mass effect, midline shift, extra-axial fluid collec tion or hydrocephalus. The meraz-white distinction is intact without evidence of an acute major vessel infarct. There is mild mucosal thickening within the maxillary sinuses bilaterally. The visualized paranasal s inuses and mastoid air cells otherwise appear clear. No acute fractures are seen. IMPRESSION: 1. NO ACUTE INTRACRANIAL PROCESS. 2. NO ACUTE FRACTURES IDENTIFIED.
[2023-10-07 15:20] LABS: Glucose,Whole Blood 65 mg/dL (70-110)
[2023-10-07 15:28] LABS: Glucose,Whole Blood 79 mg/dL (70-110)
== END 2023-10-07 17:03 | disposition home or self-care (01) ==
LOC: SUPCPDRO 12:27 → EC 12:27
DX: S09.90XA Unspecified injury of head, initial encounter (principal); R22.0 Localized swelling, mass and lump, head; E78.5 Hyperlipidemia, unspecified; I10 Essential (primary) hypertension; E11.9 Type 2 diabetes mellitus without complications; Z79.899 Other long term (current) drug therapy; W01.0XXA Fall on same level from slipping, tripping and stumbling without subsequent striking against object, initial encounter
CPT/HCPCS: 36415; 70450; 70486; 99284

== ENCOUNTER → 2024-04-06 | Outpatient (CLI) | payer MEDICARE ==
--- NOTE | 2024-04-10 15:31 | US ---
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 Indirect Doppler criteria was utilized. 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 Criteria for Assigning % of Stenosis / Diameter reduction (Estimation based on the indirect measurements of the internal carotid artery velocities (ICA PSV). 1. Normal (no stenosis)=ICA PSV < 125 cm/s: ratio < 2.0: ICA EDV<40 cm/s. 2. Less than 50% stenosis=ICA PSV < 125 cm/s: ratio < 2.0: ICA EDV<40 cm/s. 3. 50 to 69% stenosis=ICA PSV of 125 to 230 cm/s: ration 2.0 ? 4.0: ICA EDV 40-100 cm/s. 4. Greater than 70% stenosis to near occlusion= ICA PSV > 230 cm/s: ratio > 4.0: ICA EDV > 100 cm/s. 5. Near occlusion= ICA PSV velocities may be low or undetectable: variable ratio and ICA EDV. 6. Total occlusion=unable to detect flow.
== END | disposition home or self-care (01) ==
LOC: RADUSWWP 15:23
PROVIDERS: ATTEND Family Medicine
DX: E11.3299 Type 2 diabetes mellitus with mild nonproliferative diabetic retinopathy without macular edema, unspecified eye (principal)
CPT/HCPCS: 93880